=== PATIENT | male | born 1940 | race African-American/Black ===

== ENCOUNTER 2016-06-13 20:18 | Emergency (ER) | payer MEDICARE, BC, MEDICAID ==
--- NOTE | 2016-06-13 20:59 | ER Document Report ---
ED General - General Chief Complaint: Altered Mental Status Stated Complaint: ALTERED MENTAL STATUS Information source: Patient, Outside Facility Records Cannot obtain history due to: Dementia Notes: This is a 75-year-old -Turkish male with multiple medical problems sent from [facility] for concern of altered mental status. He has a prior history of dementia however the [place] [facility] staff was concerned for the past few hours she wasn't quite acting like himself and they were concerned that his left-sided chronic contractures seemed a bit worse. There were no reported fevers and he has not been vomiting. Patient does have a history of dementia and so his history is limited however he is conversant and tells me upon arrival that he feels fine and has no complaints at this time. TRAVEL OUTSIDE OF THE [place] IN LAST 30 DAYS: No - Related Data Allergies/Adverse Reactions: No Known Allergies Allergy (Verified 01/18/15 05:15) Past Medical History - General Information source: [facility] Records, Outside Facility Records Cannot obtain history due to: Dementia - Social History Smoking Status: Unknown if Ever Smoked Family History: Reviewed & Not Pertinent - Past Medical History Cardiac Medical History: Reports: Hx Atrial Fibrillation, Hx Coronary Artery Disease, Hx Hypercholesterolemia, Hx Hypertension Pulmonary Medical History: Reports: Hx COPD Neurological Medical History: Reports: Hx Cerebrovascular Accident, Hx Seizures Psychiatric Medical History: Reports: Hx Dementia, Hx Depression Past Surgical History: Reports: Hx Abdominal Surgery, Hx Herniorrhaphy - Immunizations Hx Diphtheria, Pertussis, Tetanus Vaccination: Yes Review of Systems - Review of Systems -: Yes ROS unobtainable due to patient's medical condition - dementia Constitutional: denies: Chills, Fever Physical Exam - Vital signs Vitals: Resp 15 06/13/16 20:31 - Notes Notes: PHYSICAL EXAMINATION: GENERAL: Frail elderly -Turkish male who is pleasant, conversant, and in no acute distress. HEAD: Atraumatic, normocephalic. EYES: Pupils equal round and reactive to light, extraocular movements intact, sclera anicteric, conjunctiva are normal. ENT: nares patent, oropharynx clear without exudates. Moist mucous membranes. NECK: Normal range of motion, supple without lymphadenopathy LUNGS: Breath sounds clear to auscultation bilaterally and equal. No wheezes rales or rhonchi. HEART: Regular rate and rhythm without murmurs ABDOMEN: Soft, nontender, normoactive bowel sounds. No guarding, no rebound. No masses appreciated. EXTREMITIES: Normal range of motion, no pitting or edema. No cyanosis. NEUROLOGICAL: Alert to person and he knows he is in the hospital. Cranial nerves grossly intact. Normal speech. 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 PSYCH: Normal mood, normal affect. SKIN: Warm, Dry, normal turgor, no rashes or lesions noted. Course - Re-evaluation Re-evalutation: 06/13/16 23:23 Patient's states that patient is at his baseline mental status and she thinks that he has had no acute change today. Patient has remained hemodynamically stable in the emergency department and his lab evaluation is reassuring. He does have mild hyperkalemia which is been treated today with albuterol and Kayexalate. At this point he is appropriate for discharge back to the [place] [facility]. - Vital Signs Vital signs: Temp Pulse Resp BP Pulse Ox 98.3 F 15 153/107 H 100 06/13/16 21:07 06/14/16 00:01 06/14/16 00:00 06/13/16 23:59 - Laboratory Result Diagrams: 06/13/16 21:00 06/13/16 21:00 Laboratory results interpreted by me: 06/13/16 06/13/16 06/13/16 21:00 21:00 21:00 Hgb 13.2 L MCH 26.0 L RDW 15.4 H Potassium 5.5 H ALT 98 H Alkaline Phosphatase 136 H Albumin 3.3 L Urine Ascorbic Acid 40 H - Diagnostic Test Radiology reviewed: Reports reviewed - Chest x-ray without acute process. Head CT negative for acute change. - EKG Interpretation by Me Additional EKG results interpreted by me: 06/13/16 23:25 EKG at 2036 demonstrates atrial fibrillation with a rate in the 60s. There is no ST segment elevation or depression. Discharge - Discharge Clinical Impression: Hyperkalemia, Dementia Condition: Stable Disposition: SNF Additional Instructions: Dementia The exam shows a decrease in mental ability called dementia. Signs of dementia include a gradual loss of memory and a decreased ability to reason and solve problems. Personality changes, hostility, lack of self-care, and loss of bladder or bowel control are later signs of dementia. In these later stages, patients may become confused, lost, fearful, or agitated, even in familiar places. Alzheimer's disease is the most common type of dementia. It has no known cause or specific treatment. Other causes include alcohol and drug abuse, medication effects (especially tranquilizers and sleeping pills), strokes, head injuries, and brain tumors. Sometimes severe depression in an elderly person is mistaken for dementia, and this can be treated if recognized. A complete medical evaluation and ongoing care with a doctor is important. Most people with dementia need help or supervision with daily living. Some may be able to live independently with occasional help; others require foster care or even [place] placement. Alcohol, sedatives, and antihistamines may make the symptoms worse and should be avoided. Alzheimer's disease support groups are available in some communities and can be very valuable to the entire family. Prescription medication can ease the symptoms of Alzheimer's disease in some patients. Please arrange for medical follow-up. Return here if there is a sudden change in mental function, inability to move an arm or leg, inability to speak, fever, or any other significant change. Your potassium level was mildly elevated today. This should be rechecked in the next week. Return to the emergency department for any worsening symptoms or concerns. Referrals: THEA REYES MD [Primary Care Provider] - Follow up as needed
[2016-06-13 21:23] LABS: ABSOLUTE LYMPHOCYTES (AUTO) 1.2 10^3/uL (0.5-4.7); ABSOLUTE MONOCYTES (AUTO) 0.3 10^3/uL (0.1-1.4); ABSOLUTE NEUT (AUTO) 2.7 10^3/uL (1.7-8.2); BASOPHILS % (AUTO) 1.1 % (0-2); EOSINOPHILS % (AUTO) 0.8 % (0-6); HEMOGLOBIN 13.2 g/dL (13.5-17.0); HGB HCT DIFFERENCE -1.4; LYMPHOCYTES % (AUTO) 27.9 % (13-45); MEAN CORPUSCULAR HGB CONC 32.1 g/dL (32.0-36.0); MEAN CORPUSCULAR VOLUME 81 fl (80-97); MONOCYTES % (AUTO) 7.5 % (3-13); RED BLOOD COUNT 5.07 10^6/uL (4.35-5.55); RED CELL DISTRIBUTION WIDTH 15.4 % (11.5-14.0); SEGMENTED NEUTROPHILS % (AUTO) 62.7 % (42-78); WHITE BLOOD COUNT 4.2 10^3/uL (4.0-10.5)
[2016-06-13 21:24] LABS: ALANINE AMINOTRANSFERASE 98 U/L (21-72); ALBUMIN 3.3 g/dL (3.5-5.0); ALKALINE PHOSPHATASE 136 U/L (38-126); ANION GAP 9 (5-19); ASPARTATE AMINO TRANSFERASE 52 U/L (17-59); BILIRUBIN,TOTAL 0.5 mg/dL (0.2-1.3); BLOOD UREA NITROGEN 18 mg/dL (7-20); CALCIUM 9.4 mg/dL (8.4-10.2); CARBON DIOXIDE 30 mmol/L (22-30); CHLORIDE 106 mmol/L (98-107); CREATININE RESULT 1.18 mg/dL (0.52-1.25); GLUCOSE 99 mg/dL (75-110); MAGNESIUM 2.2 mg/dL (1.6-2.3); POTASSIUM 5.5 mmol/L (3.6-5.0); SODIUM 144.7 mmol/L (137-145); TOTAL PROTEIN 7.1 g/dL (6.3-8.2)
[2016-06-13 21:31] LABS: APPEARANCE,URINE CLEAR; BILIRUBIN,URINE NEGATIVE (NEGATIVE); GLUCOSE, URINE NEGATIVE (NEGATIVE); KETONES,URINE NEGATIVE (NEGATIVE); LEUKOCYTE ESTERASE,URINE NEGATIVE (NEGATIVE); NITRITE,URINE NEGATIVE (NEGATIVE); PROTEIN,URINE NEGATIVE (NEGATIVE); URINE SPECIFIC GRAVITY 1.017; UROBILINOGEN,URINE NEGATIVE mg/dL (<2.0)
[2016-06-13] MEDS ORDERED: ALBUTEROL SULFATE 0.083% NEB 2.5 MG/3 ML AMPUL NEB ONE (21:43)
[2016-06-13] MEDS ORDERED: SODIUM POLYSTYRENE SULFONATE 15 GM/60 ML PO ONE (21:43)
[2016-06-13 21:45] LABS: URINE BARBITURATES SCREEN NEGATIVE; URINE METHADONE SCREEN NEGATIVE; URINE OPIATES LOW NEGATIVE; URINE PHENCYCLIDINE SCREEN NEGATIVE
--- NOTE | 2016-06-13 22:44 | EKG REPORT ---
SEVERITY:- ABNORMAL ECG - ATRIAL FIBRILLATION, V-RATE 47-89 LOW VOLTAGE IN FRONTAL LEADS : Confirmed by: Paresh Schwartz 13-Jun-2016 22:43:44
[2016-06-14 00:12] VITALS: BP 153/107
== END 2016-06-14 00:12 ==
LOC: ER 20:18
DX: E87.5 Hyperkalemia (principal); F03.90 Unspecified dementia, unspecified severity, without behavioral disturbance, psychotic disturbance, mood disturbance, and anxiety; I69.354 Hemiplegia and hemiparesis following cerebral infarction affecting left non-dominant side; I10 Essential (primary) hypertension; I48.91 Unspecified atrial fibrillation; I25.10 Atherosclerotic heart disease of native coronary artery without angina pectoris; J44.9 Chronic obstructive pulmonary disease, unspecified
CPT/HCPCS: 93005; 94640; 99285; 36415; 83735; 85025; 80053; 81001; 80307; 71010; 70450; 93010; A9270

== ENCOUNTER 2017-01-22 09:41 | Emergency (ER) | payer MEDICARE, BC, MEDICAID ==
--- NOTE | 2017-01-22 09:58 | ER Document Report ---
ED Seizure - General Chief Complaint: Probable Seizure Stated Complaint: POSSIBLE SYNCOPE Time Seen by Provider: 01/22/17 09:46 Notes: 76-year-old male sent to the emergency department from a retirement. The patient apparently had a seizure this morning at approximately 9 AM. I am told this was a tonic-clonic seizure. The patient does have a history of seizures, but has not been taking his medications the past 4 days. Report, through EMS, is that the patient only likes to take his medications in a certain manner and the nurse that knows how to help him with that had been off through the weekend. History is limited with the patient, as he is only occasionally verbal at baseline. He is responsive to painful stimuli now and follows some simple commands. Reviewing nurse's notes, this appears to be close to his baseline. EMS reports they noted mild low oxygen saturation level on their initial evaluation. He is afebrile. - Related Data Allergies/Adverse Reactions: No Known Allergies Allergy (Verified 01/18/15 05:15) Past Medical History - Social History Smoking Status: Never Smoker Family History: Reviewed & Not Pertinent - Past Medical History Cardiac Medical History: Reports: Hx Atrial Fibrillation, Hx Coronary Artery Disease, Hx Hypercholesterolemia, Hx Hypertension Pulmonary Medical History: Reports: Hx COPD Neurological Medical History: Reports: Hx Cerebrovascular Accident, Hx Seizures Psychiatric Medical History: Reports: Hx Dementia, Hx Depression Past Surgical History: Reports: Hx Abdominal Surgery, Hx Herniorrhaphy - Immunizations Hx Diphtheria, Pertussis, Tetanus Vaccination: Yes Review of Systems - Review of Systems -: Yes ROS unobtainable due to patient's medical condition - Patient is only occasionally verbal at baseline. He is not communicative a Physical Exam - Vital signs Vitals: Resp Pulse Ox 22 H 96 01/22/17 09:59 01/22/17 09:59 - Notes Notes: PHYSICAL EXAMINATION: GENERAL: Elderly appearing male with noted muscle loss and some degree of palsy with possible mild contractures. Appears to be bedbound and non-ambulatory. HEAD: Atraumatic, normocephalic. ENT: Nares patent, oropharynx clear without exudates. Moist mucous membranes. The patient's eyes are closed. He will open them when asked. At that time he has watery discharge. Both eyes are rotated upward. The patient is legally blind. NECK: Normal range of motion, supple without lymphadenopathy LUNGS: Breath sounds clear to auscultation bilaterally and equal. No wheezes rales or rhonchi. HEART: Tachycardic at 110 irregularly irregular. ABDOMEN: Soft, nontender, nondistended abdomen. No guarding, no rebound. No masses appreciated. Musculoskeletal: Some degree of palsy with muscle wasting. No edema noted. NEUROLOGICAL: Patient is responsive to pain and does follow simple instructions. He moves all 4 extremities, though with limited strength and focal ability. He appears to have some degree of palsy. PSYCH: Currently nonverbal. I am told he is nonverbal at times at baseline. He does follow commands. SKIN: Warm, Dry, no rashes or lesions noted. Course - Re-evaluation Re-evalutation: 01/22/17 10:09 Afebrile patient, no acute distress. Reading through the nurse's notes and discussing the history with EMS, I believe the patient is likely at baseline. He had a seizure, but has not been taking his antiseizure medication for the past 4 days. We will treat him with Keppra IV and give a dose of Cardizem IV due to his slight tachycardia with atrial fibrillation. 01/22/17 10:54 The patient called out to me from his room. He is now significantly more verbal and can answer some questions. He has not received his medications yet. His heart rate is 112-125. Lactic acid level has come back elevated. Presumably this is due to his seizure and not a septic situation, but we will continue to monitor closely and perform a recheck on his lactic acid level after medications and IV fluid. 01/22/17 12:29 Patient's chest x-ray shows left airspace disease consistent with possible pneumonia. He has had some mild hypoxia. At this point, he is having a good oxygen saturation level on room air, to 96%. His white blood cell count is normal. We are rechecking his lactic acid level which is pending. We will initiate antibiotics for possible pneumonia. 01/22/17 12:41 Patient's is now present in the emergency department. She is very pleasant and knowledgeable about her 's condition. She reports he appears at his baseline currently. I have reviewed the results with her and the history as we understand it. I discussed the chest x-ray with her and discuss possible admission to the hospital for the lesser possibility of pneumonia, versus discharge back to the retirement with ongoing antibiotics, primarily focused on treatment of the seizure he had earlier. She believes he would be best served returning to the retirement. If his lactic acid level has significantly reduced, we will plan on discharging him back to the retirement. If the lactic acid level is still elevated, will consider admission to the hospital. 01/22/17 16:24 There was a confusion with an order for repeat lactic acid level. This led to a delay in the patient's disposition. His lactic acid level has been returned now at a level of 1.8. This is significantly less than his initial lactic acid level, which I believe was likely due to his seizure activity. As per my conversation with the patient's earlier, we will discharge the patient back to the retirement. I will place him on Levaquin for possible pneumonia. We have discussed the situation where the patient may not have been taking his medications through the weekend with the . She will follow-up at the retirement regarding this. - Vital Signs Vital signs: Temp Pulse Resp BP Pulse Ox 16 158/98 H 96 01/22/17 15:01 01/22/17 15:01 01/22/17 13:01 - Laboratory Result Diagrams: 01/22/17 10:00 01/22/17 10:00 Laboratory results interpreted by me: 01/22/17 01/22/17 01/22/17 10:00 10:00 10:00 Hgb 13.3 L MCH 26.5 L RDW 15.2 H Sodium 145.3 H Potassium 5.2 H Glucose 111 H Lactic Acid 4.7 H Albumin 3.4 L Urine Urobilinogen 01/22/17 12:25 Hgb MCH RDW Sodium Potassium Glucose Lactic Acid Albumin Urine Urobilinogen 2.0 H - Diagnostic Test Radiology reviewed: Reports reviewed - X-ray shows possible pneumonia, left lower lobe. Discharge - Discharge Clinical Impression: Seizure disorder, Atrial fibrillation Pneumonia Qualifiers: Pneumonia type: due to unspecified organism Laterality: left Lung location: lower lobe of lung Qualified Code(s): J18.1 - Lobar pneumonia, unspecified organism Condition: Good Disposition: SNF-Other Instructions: Seizure, Known Epileptic ([facility]) Additional Instructions: Continue giving the patient's usual medications. He has not had his medications over the past few days, he was treated with Keppra through his IV. Chest x-ray showed the possibility of pneumonia in the left lower lobe. He was treated with Levaquin. Give Levaquin 500 mg once a day for the next 5 days. Follow-up with the patient's physician at the retirement. Return to the emergency department if he has any fever, shortness of breath, any additional seizures, or if there are other urgent concerns. Referrals: THEA REYES MD [Primary Care Provider] - Follow up in 3-5 days
[2017-01-22] MEDS ORDERED: LEVETIRACETAM 500 MG/NACL-ISO 500 MG/100 ML RTUPB IV ONE (10:07)
[2017-01-22] MEDS ORDERED: DILTIAZEM HCL INJ 25 MG/5 ML VIAL IV ONE (10:08)
[2017-01-22 10:23] LABS: ABSOLUTE BASOPHILS # (AUTO) 0.1 10^3/uL (0.0-0.2); ABSOLUTE EOSINOPHILS # (AUTO) 0.1 10^3/uL (0.0-0.6); ABSOLUTE LYMPHOCYTES (AUTO) 2.2 10^3/uL (0.5-4.7); ABSOLUTE MONOCYTES (AUTO) 0.5 10^3/uL (0.1-1.4); ABSOLUTE NEUT (AUTO) 5.2 10^3/uL (1.7-8.2); EOSINOPHILS % (AUTO) 1.3 % (0-6); HEMATOCRIT 40.7 % (37.9-51.0); HEMOGLOBIN 13.3 g/dL (13.5-17.0); HGB HCT DIFFERENCE -0.8; LYMPHOCYTES % (AUTO) 27.4 % (13-45); MEAN CORPUSCULAR HEMOGLOBIN 26.5 pg (27.0-33.4); MEAN CORPUSCULAR HGB CONC 32.6 g/dL (32.0-36.0); MEAN CORPUSCULAR VOLUME 81 fl (80-97); MONOCYTES % (AUTO) 6.4 % (3-13); RED BLOOD COUNT 5.01 10^6/uL (4.35-5.55); RED CELL DISTRIBUTION WIDTH 15.2 % (11.5-14.0); SEGMENTED NEUTROPHILS % (AUTO) 63.9 % (42-78); WHITE BLOOD COUNT 8.1 10^3/uL (4.0-10.5)
[2017-01-22 10:27] LABS: PROTHROMBIN TIME 13.7 SEC (11.4-15.4)
--- NOTE | 2017-01-22 10:33 | RADIOLOGY REPORT (SQ) ---
EXAM DESCRIPTION: CHEST SINGLE VIEW COMPLETED DATE/TIME: 01/22/2017 10:24 am REASON FOR STUDY: bed 1 sepsis protocol COMPARISON: CT chest 03/20/2016 AP chest 06/13/2016 EXAM PARAMETERS: NUMBER OF VIEWS: One view. TECHNIQUE: Single frontal radiographic view of the chest acquired. RADIATION DOSE: NA LIMITATIONS: EKG leads over the left chest, portable technique, rotated toward the [place] orientation FINDINGS: LUNGS AND PLEURA: Air bronchograms in the left retrocardiac region worrisome for pneumonia . Right lung grossly clear. No gross pleural effusions or pneumothorax. MEDIASTINUM AND HILAR STRUCTURES: No masses. Contour normal. HEART AND VASCULAR STRUCTURES: Heart normal in size. Normal vasculature. BONES: No acute findings. HARDWARE: None in the chest. OTHER: [place] over the left chest. IMPRESSION: Left lower lobe airspace disease worrisome for pneumonia TECHNICAL DOCUMENTATION: JOB ID: [id number]
[2017-01-22 10:52] LABS: ALANINE AMINOTRANSFERASE 33 U/L (21-72); ALBUMIN 3.4 g/dL (3.5-5.0); ALKALINE PHOSPHATASE 116 U/L (38-126); ANION GAP 13 (5-19); ASPARTATE AMINO TRANSFERASE 27 U/L (17-59); BILIRUBIN,DIRECT 0.4 mg/dL (0.0-0.4); BILIRUBIN,TOTAL 0.6 mg/dL (0.2-1.3); BLOOD UREA NITROGEN 17 mg/dL (7-20); CARBON DIOXIDE 25 mmol/L (22-30); CHLORIDE 107 mmol/L (98-107); CREATININE RESULT 1.12 mg/dL (0.52-1.25); GLUCOSE 111 mg/dL (75-110); POTASSIUM 5.2 mmol/L (3.6-5.0); SODIUM 145.3 mmol/L (137-145); TOTAL PROTEIN 7.5 g/dL (6.3-8.2)
[2017-01-22] MEDS ORDERED: NORMAL SALINE 500 ML IV ONE (10:55)
[2017-01-22] MEDS ORDERED: LIDOCAINE 2% JELLY 5 ML TUBE ONE (12:19)
[2017-01-22 12:44] LABS: APPEARANCE,URINE CLEAR; BILIRUBIN,URINE NEGATIVE (NEGATIVE); GLUCOSE, URINE NEGATIVE (NEGATIVE); KETONES,URINE NEGATIVE (NEGATIVE); LEUKOCYTE ESTERASE,URINE NEGATIVE (NEGATIVE); NITRITE,URINE NEGATIVE (NEGATIVE); PROTEIN,URINE NEGATIVE (NEGATIVE); URINE SPECIFIC GRAVITY 1.011
[2017-01-22] MEDS ORDERED: LEVOFLOXACIN 500 MG/D5W RTU 500 MG/100 ML RTUPB IV SCH (13:00)
[2017-01-22 17:46] VITALS: BP 146/97
--- NOTE | 2017-01-22 18:29 | EKG REPORT ---
SEVERITY:- ABNORMAL ECG - ATRIAL FIBRILLATION, V-RATE 87-146 LEFT VENTRICULAR HYPERTROPHY BORDERLINE PROLONGED QT INTERVAL : Confirmed by: Paresh Schwartz 22-Jan-2017 18:28:55
== END 2017-01-22 17:43 ==
LOC: ER 09:41
DX: G40.909 Epilepsy, unspecified, not intractable, without status epilepticus (principal); T50.996A Underdosing of other drugs, medicaments and biological substances, initial encounter; Y92.129 Unspecified place in nursing home as the place of occurrence of the external cause; Z91.128 Patient's intentional underdosing of medication regimen for other reason; Z91.14 Patient's other noncompliance with medication regimen; J18.1 Lobar pneumonia, unspecified organism; I48.91 Unspecified atrial fibrillation; R09.02 Hypoxemia; I25.10 Atherosclerotic heart disease of native coronary artery without angina pectoris; I10 Essential (primary) hypertension; J44.9 Chronic obstructive pulmonary disease, unspecified; R00.0 Tachycardia, unspecified; R74.0 Nonspecific elevation of levels of transaminase and lactic acid dehydrogenase [LDH]; Z86.73 Personal history of transient ischemic attack (TIA), and cerebral infarction without residual deficits
CPT/HCPCS: 93005; 99284; 96361; 96375; 96365; 96367; 36415; 87040; 87086; 85025; 85610; 80053; 81001; 83605; 71010; 93010; J1956; J3490; J7040; J1953

== ENCOUNTER 2017-04-10 08:14 | Inpatient (IN) | payer MEDICARE, BC, MEDICAID ==
[2017-04-10] MEDS ORDERED: ACETAMINOPHEN 325 MG SUPP.RECT PR ONE (08:17)
[2017-04-10] MEDS ORDERED: LEVETIRACETAM 1000 MG/NACL-ISO 1,000 MG/100 ML RTUPB IV ONE (08:22)
[2017-04-10] MEDS ORDERED: NORMAL SALINE 1000 ML 1,000 ML IV ONE ×2 (08:23→08:24)
[2017-04-10] MEDS ORDERED: LORAZEPAM INJ 2 MG/1 ML VIAL IV ONE (08:24)
[2017-04-10] MEDS ORDERED: ACETAMINOPHEN 650 MG SUPP.RECT PR ONE (08:25)
[2017-04-10 08:51] LABS: HEMATOCRIT 47.3 % (37.9-51.0); HEMOGLOBIN 14.8 g/dL (13.5-17.0); MEAN CORPUSCULAR HGB CONC 31.3 g/dL (32.0-36.0); MEAN CORPUSCULAR VOLUME 83 fl (80-97); PLATELET COUNT 224 10^3/uL (150-450); RED BLOOD COUNT 5.68 10^6/uL (4.35-5.55); RED CELL DISTRIBUTION WIDTH 15.1 % (11.5-14.0); WHITE BLOOD COUNT 9.8 10^3/uL (4.0-10.5)
[2017-04-10 08:53] LABS: VENOUS BLOOD BASE EXCESS -7.7 mmol/L; VENOUS BLOOD HCO3 20.2 mmol/L (20-32); VENOUS BLOOD PCO2 49.8 mmHg (35-63); VENOUS BLOOD PH 7.23 (7.30-7.42)
[2017-04-10 09:00] LABS: INTERNATIONAL RATION (INR) 0.99; PROTHROMBIN TIME 13.8 SEC (11.4-15.4)
[2017-04-10 09:10] LABS: ALANINE AMINOTRANSFERASE 36 U/L (21-72); ALBUMIN 3.8 g/dL (3.5-5.0); ALKALINE PHOSPHATASE 140 U/L (38-126); ANION GAP 16 (5-19); ASPARTATE AMINO TRANSFERASE 27 U/L (17-59); BILIRUBIN,DIRECT 0.4 mg/dL (0.0-0.4); BILIRUBIN,TOTAL 0.6 mg/dL (0.2-1.3); BLOOD UREA NITROGEN 19 mg/dL (7-20); CALCIUM 9.6 mg/dL (8.4-10.2); CARBON DIOXIDE 20 mmol/L (22-30); CHLORIDE 110 mmol/L (98-107); CREATINE KINASE 38 U/L (55-170); GLUCOSE 155 mg/dL (75-110); POTASSIUM 5.4 mmol/L (3.6-5.0); SODIUM 145.9 mmol/L (137-145); TOTAL PROTEIN 8.1 g/dL (6.3-8.2)
--- NOTE | 2017-04-10 09:16 | RADIOLOGY REPORT (SQ) ---
EXAM DESCRIPTION: CT HEAD WITHOUT COMPLETED DATE/TIME: 04/10/2017 9:02 am REASON FOR STUDY: sz COMPARISON: 06/13/2016 TECHNIQUE: Axial images acquired through the brain without intravenous contrast. Images reviewed wi th bone, brain and subdural windows. Images stored on PACS. All CT scanners at this facility use dose modulation, iterative reconstruction, and/or weight based d osing when appropriate to reduce radiation dose to as low as reasonably achievable (ALARA). [facility]: Dose Right [facility]: CareDose [facility]: Dose Right [facility]: Teradose 4D [facility]: [employer] RADIATION DOSE: CT Rad equipment meets quality standard of care and radiation dose reduction techniq ues were employed. CTDIvol: 64.5 mGy. DLP: 1163 mGy-cm.mGy. LIMITATIONS: Motion. Shrapnel in the soft tissues overlying the left scalp. FINDINGS: VENTRICLES: Prominent. CEREBRUM: No masses. No hemorrhage. No midline shift. Areas of low density in the white matter mos t likely due to chronic micro-vascular ischemic change. No evidence for acute infarction. CEREBELLUM: No masses. No hemorrhage. No alteration of density. No evidence for acute infarction. EXTRAAXIAL SPACES: Age-related involutional change. No fluid collections. No masses. ORBITS AND GLOBE: No intra- or extraconal masses. Normal contour of globe without masses. CALVARIUM: No fracture. PARANASAL SINUSES: Chronic sinus disease. SOFT TISSUES: No mass or hematoma. OTHER: No other significant finding. IMPRESSION: CHRONIC CHANGES OF ATROPHY AND MICROVASCULAR ISCHEMIA. NO ACUTE PROCESS. EVIDENCE OF ACUTE STROKE: NO. TECHNICAL DOCUMENTATION: JOB ID: [id number] Quality ID # [id number]: Final reports with documentation of one or more dose reduction techniques (e.g., Au tomated exposure control, adjustment of the mA and/or kV according to patient size, use of iterative reconstruction technique) 2010 [employer]- All Rights Reserved
[2017-04-10 09:18] LABS: ABSOLUTE LYMPHOCYTES# (MANUAL) 4.7 10^3/uL (0.5-4.7); ABSOLUTE MONOCYTES # (MANUAL) 1.6 10^3/uL (0.1-1.4); ABSOLUTE NEUTROPHILS# (MANUAL) 3.3 10^3/uL (1.7-8.2); BASOPHILS % (MANUAL) 0 % (0-2); EOSINOPHILS % (MANUAL) 2 % (0-6); LYMPHOCYTES % (MANUAL) 21 % (13-45); MONOCYTES % (MANUAL) 16 % (3-13); SEGMENTED NEUTROPHILS % (MAN) 34 % (42-78); TOTAL CELLS COUNTED 100
--- NOTE | 2017-04-10 09:18 | RADIOLOGY REPORT (SQ) ---
EXAM DESCRIPTION: CHEST SINGLE VIEW COMPLETED DATE/TIME: 04/10/2017 9:03 am REASON FOR STUDY: fever COMPARISON: 01/22/2017. EXAM PARAMETERS: NUMBER OF VIEWS: One view. TECHNIQUE: Single frontal radiographic view of the chest acquired. RADIATION DOSE: NA LIMITATIONS: None. FINDINGS: LUNGS AND PLEURA: Mild elevation of the left hemidiaphragm. Possible patchy consolidation in the retrocardiac left lung base. No pleural effusion or pneumothorax. Right lung clear. MEDIASTINUM AND HILAR STRUCTURES: No masses. Contour normal. HEART AND VASCULAR STRUCTURES: Heart normal in size. Normal vasculature. BONES: No acute findings. HARDWARE: None in the chest. OTHER: Numerous metallic densities throughout the soft tissues. IMPRESSION: MILD ELEVATION OF THE LEFT HEMIDIAPHRAGM. POSSIBLE PATCHY CONSOLIDATION IN THE RETROCAR DIAC LEFT LUNG BASE, DIFFICULT TO VISUALIZE. RIGHT LUNG CLEAR. TECHNICAL DOCUMENTATION: JOB ID: [id number] [employer]- All Rights Reserved
[2017-04-10 09:19] LABS: ANISOCYTOSIS SLIGHT; TOXIC GRANULATION SLIGHT
[2017-04-10 09:20] LABS: PLATELET COMMENT ADEQUATE
[2017-04-10 09:25] LABS: VALPROIC ACID < 10.0 ug/mL (50.0-120.0)
--- NOTE | 2017-04-10 09:27 | EKG REPORT ---
SEVERITY:- ABNORMAL ECG - ATRIAL FIBRILLATION, V-RATE 91-149 NONSPECIFIC INTRAVENTRICULAR CONDUCTION DELAY BORDERLINE ST DEPRESSION, ANTEROLATERAL LEADS : Confirmed by: Paresh Schwartz 10-Apr-2017 09:26:52
[2017-04-10 09:35] LABS: APPEARANCE,URINE SLIGHTLY-CLOUDY; BILIRUBIN,URINE NEGATIVE (NEGATIVE); COLOR,URINE YELLOW; GLUCOSE, URINE NEGATIVE (NEGATIVE); KETONES,URINE NEGATIVE (NEGATIVE); LEUKOCYTE ESTERASE,URINE NEGATIVE (NEGATIVE); NITRITE,URINE NEGATIVE (NEGATIVE); PROTEIN,URINE 100 mg/dL (NEGATIVE); URINE SPECIFIC GRAVITY 1.015; UROBILINOGEN,URINE NEGATIVE mg/dL (<2.0)
[2017-04-10] MEDS ORDERED: LEVOFLOXACIN 500 MG/D5W RTU 500 MG/100 ML RTUPB IV ONE (09:35)
[2017-04-10] MEDS ORDERED: DILTIAZEM HCL INJ 25 MG/5 ML VIAL IV ONE (10:21)
[2017-04-10] MEDS ORDERED: DILTIAZEM HCL/D5W 125 MG/125 ML RTUINJ IV PRN (10:23)
[2017-04-10 10:32] LABS: A TYPE INFLUENZA AG NEGATIVE (NEGATIVE); B INFLUENZA AG NEGATIVE (NEGATIVE)
[2017-04-10] MEDS ORDERED: ONDANSETRON HCL INJ/PF 4 MG/2 ML SDV IV PRN ×2 (11:05→12:30)
[2017-04-10] MEDS ORDERED: ALBUTEROL SULFATE 0.083% NEB 2.5 MG/3 ML AMPUL NEB PRN (11:05)
[2017-04-10] MEDS ORDERED: ACETAMINOPHEN 325 MG TABLET PO PRN (11:05)
--- NOTE | 2017-04-10 11:38 | PDOC H&P ---
History of Present Illness Admission Date/PCP: THEA REYES Patient complains of: Rigors and fever. Possible seizure History of Present Illness: CHARISSE HUDSON is a 76 year old male known to me from previous admissions who has a history of dementia as well as a seizure disorder who presents with shaking and the shelter was concerned that he may be having a seizure. When he presented he was found to have a fever of 102 and it is most likely this represents rigors. He does however have a history of seizure disorder. The patient is demented and is unresponsive at this time. The patient is a long -term resident of the shelter. The patient has clinically what appears to be right-sided pneumonia probable aspiration. Past Medical History Cardiac Medical History: Reports: Atrial Fibrillation, Coronary Artery Disease, Hyperlipidema, Hypertension Pulmonary Medical History: Reports: Chronic Obstructive Pulmonary Disease (COPD) Neurological Medical History: Reports: Seizures Malignancy Medical History: Reports: None Psychiatric Medical History: Reports: Dementia, Depression Traumatic Medical History: Reports: None Past Surgical History Past Surgical History: Reports: Herniorrhaphy Social History Information Source[facility], Outside Facility Records Lives with: Halfway Smoking Status: Former Smoker Frequency of Alcohol Use: None Hx Recreational Drug Use: No Drugs: None Hx Prescription Drug Abuse: No - Advance Directive Resuscitation Status: Do Not Resuscitate Surrogate healthcare decision maker:: His Family History Family History: Unable to obtain secondary to the patient's mental status Parental Family History Reviewed: Yes Children Family History Reviewed: No Sibling(s) Family History Reviewed.: No Medication/Allergy Allergies/Adverse Reactions: No Known Allergies Allergy (Verified 01/18/15 05:15) Review of Systems ROS unobtainable: Due to mental status Physical Exam Vital Signs: Temp Pulse Resp BP Pulse Ox 98.5 F 22 H 184/112 H 99 04/10/17 11:05 04/10/17 10:00 04/10/17 08:21 04/10/17 10:00 General appearance: PRESENT: no acute distress Eye exam: PRESENT: conjunctiva pink. ABSENT: scleral icterus Ear exam: PRESENT: normal external ear exam Mouth exam: PRESENT: dry mucosa Neck exam: ABSENT: carotid bruit, JVD, lymphadenopathy, thyromegaly Respiratory exam: PRESENT: rhonchi - Coarse rhonchi bilaterally worse on the right. ABSENT: rales, wheezes Cardiovascular exam: PRESENT: RRR. ABSENT: diastolic murmur, rubs, systolic murmur Pulses: PRESENT: normal dorsalis pedis pul Vascular exam: PRESENT: normal capillary refill GI/Abdominal exam: PRESENT: normal bowel sounds, soft. ABSENT: distended, guarding, mass, organolmegaly, rebound, tenderness Extremities exam: PRESENT: full ROM. ABSENT: calf tenderness, clubbing, pedal edema Neurological exam: PRESENT: altered, other - Contracture of the left upper extremity Psychiatric exam: PRESENT: other - Unable to assess Skin exam: PRESENT: dry, intact, warm. ABSENT: cyanosis, rash Results Laboratory Results: 04/10/17 08:20 04/10/17 08:20 04/10/17 04/10/17 04/10/17 08:20 08:20 08:20 WBC 9.8 RBC 5.68 H Hgb 14.8 Hct 47.3 MCV 83 MCH 26.0 L MCHC 31.3 L RDW 15.1 H Plt Count 224 Seg Neutrophils % Not Reportable Lymphocytes % Not Reportable Monocytes % Not Reportable Eosinophils % Not Reportable Basophils % Not Reportable Absolute Neutrophils Not Reportable Absolute Lymphocytes Not Reportable Absolute Monocytes Not Reportable Absolute Eosinophils Not Reportable Absolute Basophils Not Reportable VBG pH VBG pCO2 VBG HCO3 VBG Base Excess Sodium 145.9 H Potassium 5.4 H Chloride 110 H Carbon Dioxide 20 L Anion Gap 16 BUN 19 Creatinine 1.19 Est GFR ( Amer) > 60 Est GFR (Non-Af Amer) > 60 Glucose 155 H Lactic Acid 4.8 H Calcium 9.6 Total Bilirubin 0.6 AST 27 ALT 36 Alkaline Phosphatase 140 H Total Protein 8.1 Albumin 3.8 Urine Color Urine Appearance Urine pH Ur Specific [place] Urine Protein Urine Glucose (UA) Urine Ketones Urine Blood Urine Nitrite Ur Leukocyte Esterase Urine WBC (Auto) Urine RBC (Auto) 04/10/17 04/10/17 08:20 09:10 WBC RBC Hgb Hct MCV MCH MCHC RDW Plt Count Seg Neutrophils % Lymphocytes % Monocytes % Eosinophils % Basophils % Absolute Neutrophils Absolute Lymphocytes Absolute Monocytes Absolute Eosinophils Absolute Basophils VBG pH 7.23 L VBG pCO2 49.8 VBG HCO3 20.2 VBG Base Excess -7.7 Sodium Potassium Chloride Carbon Dioxide Anion Gap BUN Creatinine Est GFR ( Amer) Est GFR (Non-Af Amer) Glucose Lactic Acid Calcium Total Bilirubin AST ALT Alkaline Phosphatase Total Protein Albumin Urine Color YELLOW Urine Appearance SLIGHTLY-CLOUDY Urine pH 5.0 Ur Specific [place] 1.015 Urine Protein 100 H Urine Glucose (UA) NEGATIVE Urine Ketones NEGATIVE Urine Blood LARGE H Urine Nitrite NEGATIVE Ur Leukocyte Esterase NEGATIVE Urine WBC (Auto) 44 Urine RBC (Auto) >182 04/10/17 04/10/17 08:20 09:10 Creatine Kinase 38 L Troponin I 0.023 Impressions: Chest X-Ray 04/10/17 08:18 IMPRESSION: MILD ELEVATION OF THE LEFT HEMIDIAPHRAGM. POSSIBLE PATCHY CONSOLIDATION IN THE RETROCARDIAC LEFT LUNG BASE, DIFFICULT TO VISUALIZE. RIGHT LUNG CLEAR. Head CT 04/10/17 08:25 IMPRESSION: CHRONIC CHANGES OF ATROPHY AND MICROVASCULAR ISCHEMIA. NO ACUTE PROCESS. EVIDENCE OF ACUTE STROKE: NO. Assessment & Plan - Diagnosis (1) Aspiration pneumonia Qualifiers: Is this a current diagnosis for this admission?: Yes Plan: The patient had fever and rigors. Chest x-ray does not show an obvious infiltrate but clinically has a right-sided pneumonia. Will treat with Levaquin. Blood cultures have been obtained. (2) CAD (coronary artery disease) Qualifiers: Is this a current diagnosis for this admission?: Yes (3) COPD (chronic obstructive pulmonary disease) Qualifiers: Is this a current diagnosis for this admission?: Yes Plan: Continue with nebulizers as needed (4) Dementia Qualifiers: Is this a current diagnosis for this admission?: Yes (5) Hyperlipidemia Is this a current diagnosis for this admission?: Yes (6) Seizure Is this a current diagnosis for this admission?: Yes Plan: Is not clear whether the patient's presentation was from Rigors and fever or whether he had a seizure also. Will continue with his Keppra at his outpatient dose. (7) Do not resuscitate Is this a current diagnosis for this admission?: Yes - Time Time Spent: 50 to 70 Minutes - Inpatient Certification Medical Necessity: Need Close Monitoring Due to Risk of Patient Decompensation, Need for IV Antibiotics
--- NOTE | 2017-04-10 11:47 | ER Document Report ---
ED General - General Chief Complaint: Seizure Stated Complaint: POSSIBLE SEIZURE Time Seen by Provider: 04/10/17 08:18 TRAVEL OUTSIDE OF THE [place] IN LAST 30 DAYS: No - HPI Patient complains to provider of: Seizure-like activity Notes: Patient coming in for seizure-like activity. According to EMS patient was shaking in the halfway patient has a history of CVA in the past has made him mostly nonverbal patient does have lower extremity contractures. Most of the HPI is unobtainable EMS did not get much more of report from the halfway other than shaking activities concern for seizure. Patient does have a seizure disorder for which he is on Keppra for. Upon evaluation ER patient is opening his eyes spontaneously patient is drooling which we are suctioning. Tachycardic. Patient does have some generalized shaking activity of all 4 extremities - Related Data Allergies/Adverse Reactions: No Known Allergies Allergy (Verified 01/18/15 05:15) Home Medications: Current Home Medications Amlodipine Besylate [Norvasc 10 mg Tablet] 10 mg PO DAILYP PRN 04/10/17 [History ] Budesonide/Formoterol Fumarate [Symbicort Hfa 160-4.5 Mcg Inhaler 6 gm] 1 puff IH Q12 04/10/17 [History] Bupropion HCl [Wellbutrin 75 Mg Tablet] 75 mg PO Q12 04/10/17 [History] Clonidine HCl [Catapres 0.2 mg Tablet] 0.2 mg PO Q12 04/10/17 [History] Divalproex Sodium [Depakote Sprinkle 125 Mg Capsule] 125 mg PO Q12 04/10/17 [ History] Docusate Sodium [Colace 100 mg Capsule] 100 mg PO BID 04/10/17 [History] Finasteride [Proscar 5 mg Tablet] 5 mg PO DAILY 04/10/17 [History] Furosemide [Lasix 20 mg Tablet] 20 mg PO QAM 04/10/17 [History] Ibuprofen [Motrin 600 mg Tablet] 600 mg PO Q8HP PRN 04/10/17 [History] Latanoprost [Xalatan 0.005% Oph Soln 2.5 ml] 1 drop OU QHS 04/10/17 [History] Levetiracetam [Keppra 500 mg Tablet] 500 mg PO Q12 04/10/17 [History] Lisinopril [Prinivil 10 mg Tablet] 10 mg PO DAILY 04/10/17 [History] Loratadine [Claritin 10 mg Tablet] 10 mg PO DAILY 04/10/17 [History] Lorazepam 1 mg IM DAILYP PRN 04/10/17 [History] Lorazepam [Ativan 0.5 mg Tablet] 0.5 mg PO Q8HP PRN 04/10/17 [History] Metoprolol Tartrate [Lopressor 50 mg Tablet] 50 mg PO DAILY 04/10/17 [History] Quetiapine Fumarate [Seroquel] 50 mg PO DAILY 04/10/17 [History] Quetiapine Fumarate [Seroquel] 75 mg PO QHS 04/10/17 [History] Tamsulosin HCl [Flomax 0.4 mg Cap.sr] 0.4 mg PO DAILY 04/10/17 [History] Past Medical History - Social History Smoking Status: Former Smoker Chew tobacco use (# tins/day): No Frequency of alcohol use: None Drug Abuse: None Lives with: Alf Family History: Reviewed & Not Pertinent Patient has suicidal ideation: No Patient has homicidal ideation: No - Past Medical History Cardiac Medical History: Reports: Hx Atrial Fibrillation, Hx Coronary Artery Disease, Hx Hypercholesterolemia, Hx Hypertension Pulmonary Medical History: Reports: Hx COPD Neurological Medical History: Reports: Hx Cerebrovascular Accident, Hx Seizures Renal/ Medical History: Denies: Hx Peritoneal Dialysis Malignancy Medical History: Reports None Psychiatric Medical History: Reports: Hx Dementia, Hx Depression Traumatic Medical History: Reports: None Past Surgical History: Reports: Hx Abdominal Surgery, Hx Herniorrhaphy - Immunizations Hx Diphtheria, Pertussis, Tetanus Vaccination: Yes Review of Systems - Review of Systems -: Yes ROS unobtainable due to patient's medical condition - Dementia Physical Exam - Vital signs Vitals: Resp Pulse Ox 31 H 94 04/10/17 08:16 04/10/17 08:16 Interpretation: Tachycardic, Febrile - General General appearance: Other - Chronically ill chronically ill - HEENT Head: Normocephalic, Atraumatic Pupils: PERRL - Respiratory Respiratory status: No respiratory distress Chest status: Nontender Breath sounds: Rhonchi Chest palpation: Normal - Cardiovascular Rhythm: Irregularly irregular, Tachycardia Heart sounds: Normal auscultation Murmur: No - Abdominal Inspection: Normal Distension: No distension Bowel sounds: Normal Organomegaly: No organomegaly - Back Back: Normal, Nontender - Extremities General upper extremity: Normal inspection, Nontender General lower extremity: Normal inspection, Nontender - Neurological Neuro grossly intact: Yes Cognition: Confused Sensory: Normal - Skin Skin Temperature: Warm Skin Moisture: Dry Skin Color: Normal Course - Re-evaluation Re-evalutation: 04/10/17 14:19 Patient was noted planting vital signs in the ER to have a fever. Review of the patient's med rec shows that he gets daily doses of Ativan 0.5. Did give the patient a dose of Ativan 0.5 also get the patient rectal Tylenol. After menstruation of both the shaking stopped. Unclear patient actually had seizure- like activity or patient was having Reiger's. Chest x-ray does show developing pneumonia and lung examination diffuse rhonchi patient does have a history of aspiration in the past. at bedside patient currently is at his normal state after receiving Ativan according to the . Due to his cognitive decline patient mostly is nonverbal and has contractures of his extremities. Tachycardia look to be in A. fib RVR did respond to 1 dose of Cardizem. Initially a drip was ordered and this was stopped. Patient's blood pressure also responded. Will admit patient to the hospitalist service. - Vital Signs Vital signs: Temp Pulse Resp BP Pulse Ox 98.5 F 22 H 184/112 H 99 04/10/17 11:05 04/10/17 10:00 04/10/17 08:21 04/10/17 10:00 - Laboratory Result Diagrams: 04/10/17 08:20 04/10/17 08:20 Laboratory results interpreted by me: 04/10/17 04/10/17 04/10/17 08:20 08:20 08:20 RBC 5.68 H MCH 26.0 L MCHC 31.3 L RDW 15.1 H Seg Neuts % (Manual) 34 L Monocytes % (Manual) 16 H Abs Monocytes (Manual) 1.6 H VBG pH Sodium 145.9 H Potassium 5.4 H Chloride 110 H Carbon Dioxide 20 L Glucose 155 H Lactic Acid 4.8 H Alkaline Phosphatase 140 H Creatine Kinase 38 L Urine Protein Urine Blood Urine Ascorbic Acid Valproic Acid < 10.0 L 04/10/17 04/10/17 08:20 09:10 RBC MCH MCHC RDW Seg Neuts % (Manual) Monocytes % (Manual) Abs Monocytes (Manual) VBG pH 7.23 L Sodium Potassium Chloride Carbon Dioxide Glucose Lactic Acid Alkaline Phosphatase Creatine Kinase Urine Protein 100 H Urine Blood LARGE H Urine Ascorbic Acid 40 H Valproic Acid Critical Care Note - Critical Care Note Total time excluding time spent on procedures (mins): 35 Comments: Multiple evaluation for patient with fever seizure-like activity A. fib RVR Discharge - Discharge Clinical Impression: History of seizures, Do not resuscitate, atrial fibrillation Dementia Qualifiers: Dementia type: unspecified type CAD (coronary artery disease) Qualifiers: Coronary Disease-Associated Artery/Lesion type: unspecified vessel or lesion type [place] vs. transplanted heart: unspecified whether [place] or transplanted heart Associated angina: without angina Qualified Code(s): I25.10 - Atherosclerotic heart disease of [place] coronary artery without angina pectoris COPD (chronic obstructive pulmonary disease) Qualifiers: COPD type: unspecified COPD Qualified Code(s): J44.9 - Chronic obstructive pulmonary disease, unspecified Fever Qualifiers: Fever type: unspecified Qualified Code(s): R50.9 - Fever, unspecified Condition: Stable Disposition: ADMITTED INPATIENT Admitting Provider: Hospitalist - [facility] Admitted: Telemetry
[2017-04-10] MEDS: IPRATROPIUM/ALBUTEROL 0.5-2.5 MG/3 ML AMPUL NEB SCH ×2 (14:22→21:27)
[2017-04-10] MEDS: HYDRALAZINE HCL INJ/PF 20 MG/1 ML SDV IV PRN ×2 (18:07→23:27)
[2017-04-10] MEDS: DOCUSATE SODIUM 100 MG CAPSULE PO SCH (18:08)
[2017-04-10] MEDS ORDERED: LORAZEPAM INJ 2 MG/1 ML VIAL ONE ×2 (19:31→19:40)
[2017-04-10] MEDS ORDERED: METOPROLOL TARTRATE PF/INJ 5 MG/5 ML SDV IV ONE ×2 (20:14→21:00)
[2017-04-10] MEDS: DIVALPROEX SODIUM 125 MG CAP.SPRINK PO SCH (21:03)
[2017-04-10] MEDS: BUPROPION HCL 75 MG TABLET PO SCH (21:03)
[2017-04-10] MEDS: BUDESONIDE/FORMOTEROL 160-4.5 MCG 60 PUFF/6 GM MDI IH SCH (21:03)
[2017-04-10] MEDS: QUETIAPINE FUMARATE 25 MG TABLET PO SCH (21:03)
[2017-04-10] MEDS ORDERED: VALPROATE SODIUM 500 MG in NORMAL SALINE 100 ML IV ONE (22:00)
[2017-04-10] MEDS ORDERED: LEVETIRACETAM 500 MG TABLET PO SCH (22:00)
[2017-04-10] MEDS ORDERED: CLONIDINE HCL 0.2 MG TABLET PO SCH (22:00)
[2017-04-10] MEDS ORDERED: (PENDING PHARMACY ID) (Quetiapine Fumarate [Seroquel] 75 MG) PO SCH (22:00)
[2017-04-10] MEDS: CLONIDINE 0.2 MG/24 HR PATCH.TDWK TD SCH (22:10)
[2017-04-10] MEDS: LATANOPROST 0.005% OPH SOLN 2.5 ML OU SCH (22:12)
[2017-04-10] MEDS: NORMAL SALINE 1000 ML 1,000 ML IV PRN (22:13)
[2017-04-11] MEDS ORDERED: METOPROLOL TARTRATE PF/INJ 5 MG/5 ML SDV IV ONE ×3 (00:16→21:43)
[2017-04-11] MEDS ORDERED: HYDRALAZINE HCL INJ/PF 20 MG/1 ML SDV ONE (00:17)
[2017-04-11] MEDS ORDERED: HYDRALAZINE HCL INJ/PF 20 MG/1 ML SDV IV ONE (00:30)
[2017-04-11] MEDS: IPRATROPIUM/ALBUTEROL 0.5-2.5 MG/3 ML AMPUL NEB SCH ×4 (01:43→20:37)
[2017-04-11 06:13] LABS: ABSOLUTE BASOPHILS # (AUTO) 0.1 10^3/uL (0.0-0.2); ABSOLUTE LYMPHOCYTES (AUTO) 1.7 10^3/uL (0.5-4.7); ABSOLUTE MONOCYTES (AUTO) 0.5 10^3/uL (0.1-1.4); ABSOLUTE NEUT (AUTO) 5.8 10^3/uL (1.7-8.2); BASOPHILS % (AUTO) 0.8 % (0-2); EOSINOPHILS % (AUTO) 0.3 % (0-6); HEMATOCRIT 42.1 % (37.9-51.0); HEMOGLOBIN 13.7 g/dL (13.5-17.0); LYMPHOCYTES % (AUTO) 20.9 % (13-45); MEAN CORPUSCULAR HEMOGLOBIN 26.2 pg (27.0-33.4); MEAN CORPUSCULAR HGB CONC 32.5 g/dL (32.0-36.0); MEAN CORPUSCULAR VOLUME 81 fl (80-97); MONOCYTES % (AUTO) 6.3 % (3-13); PLATELET COUNT 192 10^3/uL (150-450); RED BLOOD COUNT 5.21 10^6/uL (4.35-5.55); SEGMENTED NEUTROPHILS % (AUTO) 71.7 % (42-78); TOTAL CELLS COUNTED % (AUTO) 100 %
[2017-04-11 06:32] LABS: ANION GAP 12 (5-19); BLOOD UREA NITROGEN 15 mg/dL (7-20); CALCIUM 9.5 mg/dL (8.4-10.2); CARBON DIOXIDE 24 mmol/L (22-30); CHLORIDE 107 mmol/L (98-107); GLUCOSE 111 mg/dL (75-110); SODIUM 142.6 mmol/L (137-145)
[2017-04-11 06:41] LABS: POTASSIUM 4.4 mmol/L (3.6-5.0)
[2017-04-11] MEDS ORDERED: FUROSEMIDE 20 MG TABLET PO SCH (08:00)
[2017-04-11] MEDS: HYDRALAZINE HCL INJ/PF 20 MG/1 ML SDV IV PRN ×2 (08:52→20:55)
[2017-04-11] MEDS ORDERED: (PENDING PHARMACY ID) (Quetiapine Fumarate [Seroquel] 50 MG) PO SCH (10:00)
[2017-04-11] MEDS ORDERED: CLONIDINE 0.2 MG/24 HR PATCH.TDWK TD SCH (10:00)
[2017-04-11] MEDS: ENOXAPARIN SODIUM INJ 40 MG/0.4 ML DISP.SYRIN SUBCUT SCH (10:15)
[2017-04-11] MEDS: LEVETIRACETAM 500 MG/NACL-ISO 500 MG/100 ML RTUPB IV SCH (10:15)
[2017-04-11] MEDS: QUETIAPINE FUMARATE 25 MG TABLET PO SCH ×2 (10:27→23:43)
[2017-04-11] MEDS: LORATADINE 10 MG TABLET PO SCH (10:27)
[2017-04-11] MEDS: TAMSULOSIN HCL 0.4 MG CAP.SR.24H PO SCH (10:27)
[2017-04-11] MEDS: BUPROPION HCL 75 MG TABLET PO SCH ×2 (10:27→23:42)
[2017-04-11] MEDS: BUDESONIDE/FORMOTEROL 160-4.5 MCG 60 PUFF/6 GM MDI IH SCH ×2 (10:27→23:51)
[2017-04-11] MEDS: DIVALPROEX SODIUM 125 MG CAP.SPRINK PO SCH ×2 (10:27→23:43)
[2017-04-11] MEDS: FINASTERIDE 5 MG TABLET PO SCH (10:27)
[2017-04-11] MEDS: DOCUSATE SODIUM 100 MG CAPSULE PO SCH ×2 (10:27→17:06)
[2017-04-11] MEDS: LISINOPRIL 10 MG TABLET PO SCH (10:27)
[2017-04-11] MEDS: METOPROLOL TARTRATE 50 MG TABLET PO SCH (10:27)
[2017-04-11] MEDS: METOPROLOL TARTRATE PF/INJ 5 MG/5 ML SDV IV PRN ×3 (11:21→20:00)
[2017-04-11] MEDS: LEVOFLOXACIN 750 MG/D5W RTU 750 MG/150 ML RTUPB IV SCH (11:22)
[2017-04-11] MEDS ORDERED: DILTIAZEM HCL INJ 25 MG/5 ML VIAL IV ONE (12:03)
--- NOTE | 2017-04-11 15:03 | PDOC PROGRESS REPORT ---
Subjective Progress Note for:: 04/11/17 Subjective:: Has developed atrial fibrillation with rapid ventricular rate. He also has had several seizures this morning. Reason For Visit: PNEUMONIA Physical Exam Vital Signs: Temp Pulse Resp BP Pulse Ox 98.3 F 129 H 20 178/127 H 99 04/11/17 11:39 04/11/17 11:39 04/11/17 11:39 04/11/17 11:39 04/11/17 11:39 Intake & Output 04/10/17 04/11/17 04/12/17 06:59 06:59 06:59 Intake Total 385 Balance 385 Weight 65.2 kg General appearance: PRESENT: no acute distress Eye exam: PRESENT: conjunctiva pink. ABSENT: scleral icterus Mouth exam: PRESENT: moist, tongue midline Neck exam: ABSENT: JVD Respiratory exam: PRESENT: rhonchi - Coarse rhonchi bilaterally.. ABSENT: rales , wheezes Cardiovascular exam: PRESENT: irregular rhythm. ABSENT: diastolic murmur, rubs , systolic murmur GI/Abdominal exam: PRESENT: normal bowel sounds, soft. ABSENT: distended, guarding, mass, organolmegaly, rebound, tenderness Extremities exam: ABSENT: calf tenderness, clubbing, pedal edema Neurological exam: PRESENT: other - Contracture of the left arm Psychiatric exam: PRESENT: other - Unresponsive at the time of my exam secondary to being postictal Skin exam: PRESENT: dry, intact, warm. ABSENT: cyanosis, rash Results Laboratory Results: 04/11/17 05:45 04/11/17 05:45 04/10/17 04/11/17 04/11/17 14:46 05:45 05:45 WBC 8.0 RBC 5.21 Hgb 13.7 Hct 42.1 MCV 81 MCH 26.2 L MCHC 32.5 RDW 15.0 H Plt Count 192 Seg Neutrophils % 71.7 Lymphocytes % 20.9 Monocytes % 6.3 Eosinophils % 0.3 Basophils % 0.8 Absolute Neutrophils 5.8 Absolute Lymphocytes 1.7 Absolute Monocytes 0.5 Absolute Eosinophils 0.0 Absolute Basophils 0.1 Sodium 142.6 Potassium 4.4 D Chloride 107 Carbon Dioxide 24 Anion Gap 12 BUN 15 Creatinine 0.89 Est GFR ( Amer) > 60 Est GFR (Non-Af Amer) > 60 Glucose 111 H Lactic Acid 2.2 H Calcium 9.5 Impressions: Chest X-Ray 04/10/17 08:18 IMPRESSION: MILD ELEVATION OF THE LEFT HEMIDIAPHRAGM. POSSIBLE PATCHY CONSOLIDATION IN THE RETROCARDIAC LEFT LUNG BASE, DIFFICULT TO VISUALIZE. RIGHT LUNG CLEAR. Head CT 04/10/17 08:25 IMPRESSION: CHRONIC CHANGES OF ATROPHY AND MICROVASCULAR ISCHEMIA. NO ACUTE PROCESS. EVIDENCE OF ACUTE STROKE: NO. Assessment & Plan - Diagnosis (1) Aspiration pneumonia Qualifiers: Is this a current diagnosis for this admission?: Yes Plan: The patient had fever and rigors. Chest x-ray does not show an obvious infiltrate but clinically has a right-sided pneumonia. Will treat with Levaquin. Blood cultures have been obtained. (2) CAD (coronary artery disease) Qualifiers: Coronary Disease-Associated Artery/Lesion type: unspecified vessel or lesion type [place] vs. transplanted heart: unspecified whether [place] or transplanted heart Associated angina: without angina Qualified Code(s): I25.10 - Atherosclerotic heart disease of [place] coronary artery without angina pectoris Is this a current diagnosis for this admission?: Yes (3) COPD (chronic obstructive pulmonary disease) Qualifiers: COPD type: unspecified COPD Qualified Code(s): J44.9 - Chronic obstructive pulmonary disease, unspecified Is this a current diagnosis for this admission?: Yes Plan: Continue with nebulizers as needed (4) Dementia Qualifiers: Dementia type: unspecified type Is this a current diagnosis for this admission?: Yes (5) Hyperlipidemia Is this a current diagnosis for this admission?: Yes (6) Seizure Is this a current diagnosis for this admission?: Yes Plan: Continue with IV Keppra (7) Do not resuscitate Is this a current diagnosis for this admission?: Yes (8) Atrial fibrillation Is this a current diagnosis for this admission?: Yes Plan: Patient will be started on on a diltiazem drip. - Time Time Spent with patient: 25-34 minutes - Inpatient Certification Medical Necessity: Need Close Monitoring Due to Risk of Patient Decompensation, Need for IV Antibiotics
[2017-04-11] MEDS: NORMAL SALINE 1000 ML 1,000 ML IV PRN (16:47)
[2017-04-11] MEDS ORDERED: LEVETIRACETAM INJ/PF 500 MG/5 ML SDV IV ONE (17:00)
[2017-04-11] MEDS ORDERED: LEVETIRACETAM 500 MG/NACL-ISO 500 MG/100 ML RTUPB IV ONE (17:30)
[2017-04-11] MEDS: LATANOPROST 0.005% OPH SOLN 2.5 ML OU SCH (23:51)
[2017-04-12] MEDS: METOPROLOL TARTRATE PF/INJ 5 MG/5 ML SDV IV PRN ×2 (00:15→08:23)
[2017-04-12] MEDS: IPRATROPIUM/ALBUTEROL 0.5-2.5 MG/3 ML AMPUL NEB SCH ×4 (02:11→20:37)
[2017-04-12] MEDS: NORMAL SALINE 1000 ML 1,000 ML IV PRN (02:54)
[2017-04-12 07:34] LABS: ABSOLUTE BASOPHILS # (AUTO) 0.1 10^3/uL (0.0-0.2); ABSOLUTE LYMPHOCYTES (AUTO) 1.1 10^3/uL (0.5-4.7); ABSOLUTE MONOCYTES (AUTO) 0.5 10^3/uL (0.1-1.4); ABSOLUTE NEUT (AUTO) 4.7 10^3/uL (1.7-8.2); BASOPHILS % (AUTO) 0.8 % (0-2); EOSINOPHILS % (AUTO) 0.2 % (0-6); HEMATOCRIT 41.1 % (37.9-51.0); HEMOGLOBIN 13.1 g/dL (13.5-17.0); LYMPHOCYTES % (AUTO) 18.1 % (13-45); MEAN CORPUSCULAR HEMOGLOBIN 25.9 pg (27.0-33.4); MEAN CORPUSCULAR HGB CONC 31.8 g/dL (32.0-36.0); MEAN CORPUSCULAR VOLUME 82 fl (80-97); MONOCYTES % (AUTO) 7.5 % (3-13); PLATELET COUNT 194 10^3/uL (150-450); RED BLOOD COUNT 5.04 10^6/uL (4.35-5.55); RED CELL DISTRIBUTION WIDTH 14.9 % (11.5-14.0); SEGMENTED NEUTROPHILS % (AUTO) 73.4 % (42-78); TOTAL CELLS COUNTED % (AUTO) 100 %; WHITE BLOOD COUNT 6.4 10^3/uL (4.0-10.5)
[2017-04-12 07:48] LABS: ANION GAP 11 (5-19); BLOOD UREA NITROGEN 13 mg/dL (7-20); CALCIUM 9.2 mg/dL (8.4-10.2); CARBON DIOXIDE 22 mmol/L (22-30); CHLORIDE 108 mmol/L (98-107); GLUCOSE 93 mg/dL (75-110); SODIUM 140.9 mmol/L (137-145)
[2017-04-12] MEDS: HYDRALAZINE HCL INJ/PF 20 MG/1 ML SDV IV PRN (07:52)
[2017-04-12] MEDS: DILTIAZEM HCL/D5W 125 MG/125 ML RTUINJ IV PRN (08:44)
[2017-04-12] MEDS: ENOXAPARIN SODIUM INJ 40 MG/0.4 ML DISP.SYRIN SUBCUT SCH (10:59)
[2017-04-12] MEDS: TAMSULOSIN HCL 0.4 MG CAP.SR.24H PO SCH (10:59)
[2017-04-12] MEDS: METOPROLOL TARTRATE 50 MG TABLET PO SCH (11:00)
[2017-04-12] MEDS: DIVALPROEX SODIUM 125 MG CAP.SPRINK PO SCH ×2 (11:01→21:36)
[2017-04-12] MEDS: BUPROPION HCL 75 MG TABLET PO SCH ×2 (11:01→21:36)
[2017-04-12] MEDS: FINASTERIDE 5 MG TABLET PO SCH (11:02)
[2017-04-12] MEDS: LORATADINE 10 MG TABLET PO SCH (11:02)
[2017-04-12] MEDS: QUETIAPINE FUMARATE 25 MG TABLET PO SCH ×2 (11:03→21:37)
[2017-04-12] MEDS: DOCUSATE SODIUM 100 MG CAPSULE PO SCH ×2 (11:04→17:34)
[2017-04-12] MEDS: LISINOPRIL 10 MG TABLET PO SCH (11:06)
[2017-04-12] MEDS: LEVOFLOXACIN 750 MG/D5W RTU 750 MG/150 ML RTUPB IV SCH (11:08)
--- NOTE | 2017-04-12 12:03 | PDOC PROGRESS REPORT ---
Subjective Progress Note for:: 04/12/17 Subjective:: Does not respond this morning. Reason For Visit: PNEUMONIA Physical Exam Vital Signs: Temp Pulse Resp BP Pulse Ox 98.1 F 120 H 20 158/112 H 100 04/12/17 07:30 04/12/17 11:22 04/12/17 08:48 04/12/17 11:22 04/12/17 08:48 Intake & Output 04/11/17 04/12/17 04/13/17 06:59 06:59 06:59 Intake Total 385 2000 Balance 385 1999 Weight 65.2 kg 63.6 kg General appearance: PRESENT: no acute distress Eye exam: PRESENT: conjunctiva pink. ABSENT: scleral icterus Mouth exam: PRESENT: moist, tongue midline Neck exam: ABSENT: JVD Respiratory exam: PRESENT: clear to auscultation karine. ABSENT: rales, rhonchi, wheezes Cardiovascular exam: PRESENT: irregular rhythm, tachycardia. ABSENT: diastolic murmur, rubs, systolic murmur GI/Abdominal exam: PRESENT: normal bowel sounds, soft. ABSENT: distended, guarding, mass, organolmegaly, rebound, tenderness Neurological exam: PRESENT: altered Psychiatric exam: PRESENT: flat affect Skin exam: PRESENT: dry, intact, warm. ABSENT: cyanosis, rash Results Laboratory Results: 04/12/17 06:35 04/12/17 06:35 04/12/17 04/12/17 06:35 06:35 WBC 6.4 RBC 5.04 Hgb 13.1 L Hct 41.1 MCV 82 MCH 25.9 L MCHC 31.8 L RDW 14.9 H Plt Count 194 Seg Neutrophils % 73.4 Lymphocytes % 18.1 Monocytes % 7.5 Eosinophils % 0.2 Basophils % 0.8 Absolute Neutrophils 4.7 Absolute Lymphocytes 1.1 Absolute Monocytes 0.5 Absolute Eosinophils 0.0 Absolute Basophils 0.1 Sodium 140.9 Potassium 4.0 Chloride 108 H Carbon Dioxide 22 Anion Gap 11 BUN 13 Creatinine 0.81 Est GFR ( Amer) > 60 Est GFR (Non-Af Amer) > 60 Glucose 93 Calcium 9.2 Impressions: Chest X-Ray 04/10/17 08:18 IMPRESSION: MILD ELEVATION OF THE LEFT HEMIDIAPHRAGM. POSSIBLE PATCHY CONSOLIDATION IN THE RETROCARDIAC LEFT LUNG BASE, DIFFICULT TO VISUALIZE. RIGHT LUNG CLEAR. Head CT 04/10/17 08:25 IMPRESSION: CHRONIC CHANGES OF ATROPHY AND MICROVASCULAR ISCHEMIA. NO ACUTE PROCESS. EVIDENCE OF ACUTE STROKE: NO. Assessment & Plan - Diagnosis (1) Aspiration pneumonia Qualifiers: Is this a current diagnosis for this admission?: Yes Plan: The patient had fever and rigors. Chest x-ray does not show an obvious infiltrate but clinically has a right-sided pneumonia. Will treat with Levaquin. Blood cultures are negative so far. (2) CAD (coronary artery disease) Qualifiers: Coronary Disease-Associated Artery/Lesion type: unspecified vessel or lesion type [place] vs. transplanted heart: unspecified whether [place] or transplanted heart Associated angina: without angina Qualified Code(s): I25.10 - Atherosclerotic heart disease of [place] coronary artery without angina pectoris Is this a current diagnosis for this admission?: Yes (3) COPD (chronic obstructive pulmonary disease) Qualifiers: COPD type: unspecified COPD Qualified Code(s): J44.9 - Chronic obstructive pulmonary disease, unspecified Is this a current diagnosis for this admission?: Yes Plan: Continue with nebulizers as needed (4) Dementia Qualifiers: Dementia type: unspecified type Is this a current diagnosis for this admission?: Yes (5) Hyperlipidemia Is this a current diagnosis for this admission?: Yes (6) Seizure Is this a current diagnosis for this admission?: Yes Plan: Continue with IV Keppra (7) Do not resuscitate Is this a current diagnosis for this admission?: Yes (8) Atrial fibrillation Is this a current diagnosis for this admission?: Yes Plan: Patient is tachycardic this morning. Will restart the diltiazem drip. - Time Time Spent with patient: 25-34 minutes - Inpatient Certification Medical Necessity: Need Close Monitoring Due to Risk of Patient Decompensation
[2017-04-12] MEDS: BUDESONIDE/FORMOTEROL 160-4.5 MCG 60 PUFF/6 GM MDI IH SCH ×2 (13:28→21:39)
[2017-04-12] MEDS: LEVETIRACETAM 500 MG/NACL-ISO 500 MG/100 ML RTUPB IV SCH (13:28)
[2017-04-12] MEDS: LATANOPROST 0.005% OPH SOLN 2.5 ML OU SCH (21:39)
[2017-04-13] MEDS: IPRATROPIUM/ALBUTEROL 0.5-2.5 MG/3 ML AMPUL NEB SCH ×4 (01:08→20:30)
[2017-04-13] MEDS: METOPROLOL TARTRATE PF/INJ 5 MG/5 ML SDV IV PRN (02:24)
[2017-04-13] MEDS: DILTIAZEM HCL/D5W 125 MG/125 ML RTUINJ IV PRN (05:14)
[2017-04-13] MEDS: NORMAL SALINE 1000 ML 1,000 ML IV PRN (05:15)
[2017-04-13 06:34] LABS: ABSOLUTE LYMPHOCYTES (AUTO) 1.2 10^3/uL (0.5-4.7); ABSOLUTE MONOCYTES (AUTO) 0.4 10^3/uL (0.1-1.4); ABSOLUTE NEUT (AUTO) 3.8 10^3/uL (1.7-8.2); BASOPHILS % (AUTO) 0.9 % (0-2); EOSINOPHILS % (AUTO) 0.9 % (0-6); HEMATOCRIT 38.7 % (37.9-51.0); HEMOGLOBIN 12.5 g/dL (13.5-17.0); LYMPHOCYTES % (AUTO) 21.8 % (13-45); MEAN CORPUSCULAR HEMOGLOBIN 26.2 pg (27.0-33.4); MEAN CORPUSCULAR HGB CONC 32.2 g/dL (32.0-36.0); MEAN CORPUSCULAR VOLUME 81 fl (80-97); PLATELET COUNT 150 10^3/uL (150-450); RED BLOOD COUNT 4.76 10^6/uL (4.35-5.55); RED CELL DISTRIBUTION WIDTH 14.9 % (11.5-14.0); SEGMENTED NEUTROPHILS % (AUTO) 68.4 % (42-78); TOTAL CELLS COUNTED % (AUTO) 100 %; WHITE BLOOD COUNT 5.5 10^3/uL (4.0-10.5)
[2017-04-13 06:59] LABS: ANION GAP 8 (5-19); BLOOD UREA NITROGEN 15 mg/dL (7-20); CALCIUM 8.8 mg/dL (8.4-10.2); CARBON DIOXIDE 25 mmol/L (22-30); CHLORIDE 111 mmol/L (98-107); GLUCOSE 93 mg/dL (75-110); POTASSIUM 3.7 mmol/L (3.6-5.0); SODIUM 143.7 mmol/L (137-145)
[2017-04-13] MEDS: ENOXAPARIN SODIUM INJ 40 MG/0.4 ML DISP.SYRIN SUBCUT SCH (09:48)
[2017-04-13] MEDS: FINASTERIDE 5 MG TABLET PO SCH (09:49)
[2017-04-13] MEDS: DOCUSATE SODIUM 100 MG CAPSULE PO SCH ×2 (09:49→17:15)
[2017-04-13] MEDS: BUPROPION HCL 75 MG TABLET PO SCH ×2 (09:49→21:57)
[2017-04-13] MEDS: TAMSULOSIN HCL 0.4 MG CAP.SR.24H PO SCH (09:49)
[2017-04-13] MEDS: DIVALPROEX SODIUM 125 MG CAP.SPRINK PO SCH ×2 (09:49→21:57)
[2017-04-13] MEDS: QUETIAPINE FUMARATE 25 MG TABLET PO SCH ×2 (09:50→21:57)
[2017-04-13] MEDS: METOPROLOL TARTRATE 50 MG TABLET PO SCH (09:50)
[2017-04-13] MEDS: LISINOPRIL 10 MG TABLET PO SCH (09:50)
[2017-04-13] MEDS: LORATADINE 10 MG TABLET PO SCH (09:51)
[2017-04-13] MEDS: LEVOFLOXACIN 750 MG/D5W RTU 750 MG/150 ML RTUPB IV SCH (09:51)
[2017-04-13] MEDS: BUDESONIDE/FORMOTEROL 160-4.5 MCG 60 PUFF/6 GM MDI IH SCH ×2 (09:52→21:57)
[2017-04-13] MEDS: LEVETIRACETAM 500 MG/NACL-ISO 500 MG/100 ML RTUPB IV SCH (09:52)
--- NOTE | 2017-04-13 12:46 | PDOC PROGRESS REPORT ---
Subjective Progress Note for:: 04/13/17 Subjective:: Is more responsive this morning. Reason For Visit: PNEUMONIA Physical Exam Vital Signs: Temp Pulse Resp BP Pulse Ox 97.4 F 60 16 126/83 H 100 04/12/17 16:56 04/13/17 12:00 04/13/17 07:46 04/13/17 12:00 04/13/17 07:46 Intake & Output 04/12/17 04/13/17 04/14/17 06:59 06:59 06:59 Intake Total 1999 267 Balance 19998 Weight 63.6 kg General appearance: PRESENT: no acute distress Eye exam: PRESENT: conjunctiva pink. ABSENT: scleral icterus Mouth exam: PRESENT: moist, tongue midline Neck exam: ABSENT: JVD Respiratory exam: PRESENT: rhonchi. ABSENT: rales, wheezes Cardiovascular exam: PRESENT: irregular rhythm. ABSENT: diastolic murmur, rubs , systolic murmur GI/Abdominal exam: PRESENT: normal bowel sounds, soft. ABSENT: distended, guarding, mass, organolmegaly, rebound, tenderness Extremities exam: ABSENT: calf tenderness, clubbing, pedal edema Neurological exam: PRESENT: awake. ABSENT: oriented to person, oriented to place, oriented to time, oriented to situation Psychiatric exam: PRESENT: appropriate affect Skin exam: PRESENT: dry, intact, warm. ABSENT: cyanosis, rash Results Laboratory Results: 04/13/17 06:10 04/13/17 06:10 04/13/17 04/13/17 06:10 06:10 WBC 5.5 RBC 4.76 Hgb 12.5 L Hct 38.7 MCV 81 MCH 26.2 L MCHC 32.2 RDW 14.9 H Plt Count 150 Seg Neutrophils % 68.4 Lymphocytes % 21.8 Monocytes % 8.0 Eosinophils % 0.9 Basophils % 0.9 Absolute Neutrophils 3.8 Absolute Lymphocytes 1.2 Absolute Monocytes 0.4 Absolute Eosinophils 0.0 Absolute Basophils 0.0 Sodium 143.7 Potassium 3.7 Chloride 111 H Carbon Dioxide 25 Anion Gap 8 BUN 15 Creatinine 0.97 Est GFR ( Amer) > 60 Est GFR (Non-Af Amer) > 60 Glucose 93 Calcium 8.8 Impressions: Chest X-Ray 04/10/17 08:18 IMPRESSION: MILD ELEVATION OF THE LEFT HEMIDIAPHRAGM. POSSIBLE PATCHY CONSOLIDATION IN THE RETROCARDIAC LEFT LUNG BASE, DIFFICULT TO VISUALIZE. RIGHT LUNG CLEAR. Head CT 04/10/17 08:25 IMPRESSION: CHRONIC CHANGES OF ATROPHY AND MICROVASCULAR ISCHEMIA. NO ACUTE PROCESS. EVIDENCE OF ACUTE STROKE: NO. Assessment & Plan - Diagnosis (1) Aspiration pneumonia Qualifiers: Is this a current diagnosis for this admission?: Yes Plan: Chest x-ray does not show an obvious infiltrate but clinically has a right- sided pneumonia. Will continue with Levaquin. Blood cultures are negative so far. (2) CAD (coronary artery disease) Qualifiers: Coronary Disease-Associated Artery/Lesion type: unspecified vessel or lesion type [place] vs. transplanted heart: unspecified whether [place] or transplanted heart Associated angina: without angina Qualified Code(s): I25.10 - Atherosclerotic heart disease of [place] coronary artery without angina pectoris Is this a current diagnosis for this admission?: Yes (3) COPD (chronic obstructive pulmonary disease) Qualifiers: COPD type: unspecified COPD Qualified Code(s): J44.9 - Chronic obstructive pulmonary disease, unspecified Is this a current diagnosis for this admission?: Yes Plan: Continue with nebulizers as needed (4) Dementia Qualifiers: Dementia type: unspecified type Is this a current diagnosis for this admission?: Yes (5) Hyperlipidemia Is this a current diagnosis for this admission?: Yes (6) Seizure Is this a current diagnosis for this admission?: Yes Plan: Continue with IV Keppra (7) Do not resuscitate Is this a current diagnosis for this admission?: Yes (8) Atrial fibrillation Is this a current diagnosis for this admission?: Yes Plan: patient is rate controlled. Will DC the diltiazem drip and switch to p.o. diltiazem. He is already on a beta-chris. - Time Time Spent with patient: 25-34 minutes - Inpatient Certification Medical Necessity: Need Close Monitoring Due to Risk of Patient Decompensation, Need for IV Antibiotics
--- NOTE | 2017-04-13 13:12 | Physician Advisory Note ---
Physician Advisor ProgressNote .: Pursuant to the plan for [facility], I have reviewed the medical record for this patient. Physician Advisor Statement: Nice documentation of findings supporting dx of PNA: fever, rigors, coarse rhonchi on exam, tachycardia, tachypnea >24, consolidation/infiltrate on CXR, previous aspiration with suspected recurrent aspiration (bedbound pt, aspirations do not have to be witnessed to have occurred) .... Please consider documenting, if you agree: 1. "Acute Hypernatremia, likely due to intravascular volume depletion" 2. "underweight with protein-calorie malnutrition [state mild, mod, or severe] with BMI 17.5, ____[?wt loss, ?appetite loss, ]" [if possible, give specifics on intake, wt loss, loss of SQ fat & muscle mass, diminished hand core manager strength, & clinical importance such as (A) nutritional assessment ordered, (B) modified diet or supplements ordered, (C) additional labs ordered, (D) prolonged wound healing time, (E) delayed infxn clearance] 3. If any further evidence of aspiration PNA found, please document it, too ( cough, sputum, pleuritic CP, dyspnea, ... - PNA is one of the dx.s that payers are really 2nd-guessing drs on these days.... Thanks! CK
[2017-04-13] MEDS: DILTIAZEM HCL 30 MG TABLET PO SCH (17:14)
[2017-04-13] MEDS: LATANOPROST 0.005% OPH SOLN 2.5 ML OU SCH (21:57)
[2017-04-13] MEDS: HYDRALAZINE HCL INJ/PF 20 MG/1 ML SDV IV PRN (23:35)
[2017-04-13] MEDS ORDERED: LEVETIRACETAM 500 MG/NACL-ISO 500 MG/100 ML RTUPB IV ONE ×2 (23:45→23:53)
[2017-04-14] MEDS: DILTIAZEM HCL 30 MG TABLET PO SCH ×4 (01:48→18:07)
[2017-04-14] MEDS: IPRATROPIUM/ALBUTEROL 0.5-2.5 MG/3 ML AMPUL NEB SCH ×4 (02:31→21:23)
[2017-04-14] MEDS: METOPROLOL TARTRATE PF/INJ 5 MG/5 ML SDV IV PRN (03:21)
[2017-04-14] MEDS: NORMAL SALINE 1000 ML 1,000 ML IV PRN ×3 (03:55→23:15)
[2017-04-14 05:37] LABS: ABSOLUTE BASOPHILS # (AUTO) 0.1 10^3/uL (0.0-0.2); ABSOLUTE LYMPHOCYTES (AUTO) 1.2 10^3/uL (0.5-4.7); ABSOLUTE MONOCYTES (AUTO) 0.5 10^3/uL (0.1-1.4); ABSOLUTE NEUT (AUTO) 3.3 10^3/uL (1.7-8.2); BASOPHILS % (AUTO) 1.1 % (0-2); EOSINOPHILS % (AUTO) 0.9 % (0-6); HEMATOCRIT 37.9 % (37.9-51.0); HEMOGLOBIN 12.2 g/dL (13.5-17.0); LYMPHOCYTES % (AUTO) 23.2 % (13-45); MEAN CORPUSCULAR HEMOGLOBIN 26.1 pg (27.0-33.4); MEAN CORPUSCULAR HGB CONC 32.3 g/dL (32.0-36.0); MEAN CORPUSCULAR VOLUME 81 fl (80-97); MONOCYTES % (AUTO) 9.6 % (3-13); PLATELET COUNT 162 10^3/uL (150-450); RED BLOOD COUNT 4.69 10^6/uL (4.35-5.55); RED CELL DISTRIBUTION WIDTH 14.8 % (11.5-14.0); SEGMENTED NEUTROPHILS % (AUTO) 65.2 % (42-78); TOTAL CELLS COUNTED % (AUTO) 100 %; WHITE BLOOD COUNT 5.1 10^3/uL (4.0-10.5)
[2017-04-14 05:56] LABS: ANION GAP 7 (5-19); BLOOD UREA NITROGEN 12 mg/dL (7-20); CALCIUM 8.8 mg/dL (8.4-10.2); CARBON DIOXIDE 24 mmol/L (22-30); CHLORIDE 111 mmol/L (98-107); GLUCOSE 93 mg/dL (75-110); POTASSIUM 3.5 mmol/L (3.6-5.0); SODIUM 142.1 mmol/L (137-145)
[2017-04-14] MEDS: ENOXAPARIN SODIUM INJ 40 MG/0.4 ML DISP.SYRIN SUBCUT SCH (10:45)
[2017-04-14] MEDS: LORATADINE 10 MG TABLET PO SCH (10:46)
[2017-04-14] MEDS: BUPROPION HCL 75 MG TABLET PO SCH ×2 (10:46→23:14)
[2017-04-14] MEDS: TAMSULOSIN HCL 0.4 MG CAP.SR.24H PO SCH (10:46)
[2017-04-14] MEDS: DOCUSATE SODIUM 100 MG CAPSULE PO SCH ×2 (10:46→18:07)
[2017-04-14] MEDS: LISINOPRIL 10 MG TABLET PO SCH (10:47)
[2017-04-14] MEDS: FINASTERIDE 5 MG TABLET PO SCH (10:47)
[2017-04-14] MEDS: METOPROLOL TARTRATE 50 MG TABLET PO SCH (10:47)
[2017-04-14] MEDS: LEVOFLOXACIN 750 MG/D5W RTU 750 MG/150 ML RTUPB IV SCH (10:48)
[2017-04-14] MEDS: LEVETIRACETAM 500 MG/NACL-ISO 500 MG/100 ML RTUPB IV SCH ×2 (10:48→21:21)
[2017-04-14] MEDS: QUETIAPINE FUMARATE 25 MG TABLET PO SCH ×2 (10:48→23:14)
[2017-04-14] MEDS: DIVALPROEX SODIUM 125 MG CAP.SPRINK PO SCH ×2 (10:48→23:14)
[2017-04-14] MEDS: HYDRALAZINE HCL INJ/PF 20 MG/1 ML SDV IV PRN (11:13)
[2017-04-14] MEDS: BUDESONIDE/FORMOTEROL 160-4.5 MCG 60 PUFF/6 GM MDI IH SCH ×2 (11:16→23:14)
--- NOTE | 2017-04-14 12:42 | PDOC PROGRESS REPORT ---
Subjective Progress Note for:: 04/14/17 Subjective:: patient had 3 seizures overnight. Reason For Visit: PNEUMONIA Physical Exam Vital Signs: Temp Pulse Resp BP Pulse Ox 97.3 F 52 L 21 H 169/117 H 98 04/14/17 07:23 04/14/17 08:13 04/14/17 08:13 04/14/17 07:23 04/14/17 08:13 Intake & Output 04/13/17 04/14/17 04/15/17 06:59 06:59 06:59 Intake Total 2678 2861 Balance 2678 2861 Weight 65.6 kg 67.7 kg General appearance: PRESENT: no acute distress Eye exam: PRESENT: conjunctiva pink. ABSENT: scleral icterus Mouth exam: PRESENT: moist, tongue midline Neck exam: ABSENT: JVD Respiratory exam: PRESENT: clear to auscultation karine. ABSENT: rales, rhonchi, wheezes Cardiovascular exam: PRESENT: irregular rhythm. ABSENT: diastolic murmur, rubs , systolic murmur GI/Abdominal exam: PRESENT: normal bowel sounds, soft. ABSENT: distended, guarding, mass, organolmegaly, rebound, tenderness Extremities exam: ABSENT: calf tenderness, clubbing, pedal edema Psychiatric exam: PRESENT: flat affect Skin exam: PRESENT: dry, intact, warm. ABSENT: cyanosis, rash Results Laboratory Results: 04/14/17 05:13 04/14/17 05:13 04/14/17 04/14/17 05:13 05:13 WBC 5.1 RBC 4.69 Hgb 12.2 L Hct 37.9 MCV 81 MCH 26.1 L MCHC 32.3 RDW 14.8 H Plt Count 162 Seg Neutrophils % 65.2 Lymphocytes % 23.2 Monocytes % 9.6 Eosinophils % 0.9 Basophils % 1.1 Absolute Neutrophils 3.3 Absolute Lymphocytes 1.2 Absolute Monocytes 0.5 Absolute Eosinophils 0.0 Absolute Basophils 0.1 Sodium 142.1 Potassium 3.5 L Chloride 111 H Carbon Dioxide 24 Anion Gap 7 BUN 12 Creatinine 0.90 Est GFR ( Amer) > 60 Est GFR (Non-Af Amer) > 60 Glucose 93 Calcium 8.8 Impressions: Chest X-Ray 04/10/17 08:18 IMPRESSION: MILD ELEVATION OF THE LEFT HEMIDIAPHRAGM. POSSIBLE PATCHY CONSOLIDATION IN THE RETROCARDIAC LEFT LUNG BASE, DIFFICULT TO VISUALIZE. RIGHT LUNG CLEAR. Head CT 04/10/17 08:25 IMPRESSION: CHRONIC CHANGES OF ATROPHY AND MICROVASCULAR ISCHEMIA. NO ACUTE PROCESS. EVIDENCE OF ACUTE STROKE: NO. Assessment & Plan - Diagnosis (1) Aspiration pneumonia Qualifiers: Is this a current diagnosis for this admission?: Yes Plan: Chest x-ray does not show an obvious infiltrate but clinically has a right- sided pneumonia. Will continue with Levaquin. Blood cultures are negative so far. (2) CAD (coronary artery disease) Qualifiers: Coronary Disease-Associated Artery/Lesion type: unspecified vessel or lesion type [place] vs. transplanted heart: unspecified whether [place] or transplanted heart Associated angina: without angina Qualified Code(s): I25.10 - Atherosclerotic heart disease of [place] coronary artery without angina pectoris Is this a current diagnosis for this admission?: Yes (3) COPD (chronic obstructive pulmonary disease) Qualifiers: COPD type: unspecified COPD Qualified Code(s): J44.9 - Chronic obstructive pulmonary disease, unspecified Is this a current diagnosis for this admission?: Yes Plan: Continue with nebulizers as needed (4) Dementia Qualifiers: Dementia type: unspecified type Is this a current diagnosis for this admission?: Yes (5) Hyperlipidemia Is this a current diagnosis for this admission?: Yes (6) Seizure Is this a current diagnosis for this admission?: Yes Plan: Continue with Keppra and valproic acid. Will add on Vimpat. (7) Do not resuscitate Is this a current diagnosis for this admission?: Yes (8) Atrial fibrillation Is this a current diagnosis for this admission?: Yes Plan: Patient's rate has varied from 50-150. He may have a component of sick sinus syndrome. He is on diltiazem and a beta-chris. - Time Time Spent with patient: 25-34 minutes - Inpatient Certification Medical Necessity: Need Close Monitoring Due to Risk of Patient Decompensation
[2017-04-14] MEDS ORDERED: LACOSAMIDE 50 MG TABLET PO ONE (12:45)
[2017-04-14] MEDS ORDERED: LORAZEPAM INJ 2 MG/1 ML VIAL IV ONE (15:15)
[2017-04-14] MEDS: LORAZEPAM INJ 2 MG/1 ML VIAL IV SCH (20:22)
[2017-04-14] MEDS: LACOSAMIDE 50 MG TABLET PO SCH (23:15)
[2017-04-15] MEDS: DILTIAZEM HCL 30 MG TABLET PO SCH ×5 (01:00→23:43)
[2017-04-15] MEDS: IPRATROPIUM/ALBUTEROL 0.5-2.5 MG/3 ML AMPUL NEB SCH ×4 (02:36→20:11)
[2017-04-15] MEDS: LORAZEPAM INJ 2 MG/1 ML VIAL IV SCH ×4 (03:05→21:24)
[2017-04-15] MEDS: LATANOPROST 0.005% OPH SOLN 2.5 ML OU SCH ×2 (03:06→21:39)
[2017-04-15 05:48] LABS: ABSOLUTE EOSINOPHILS # (AUTO) 0.1 10^3/uL (0.0-0.6); ABSOLUTE LYMPHOCYTES (AUTO) 1.2 10^3/uL (0.5-4.7); ABSOLUTE MONOCYTES (AUTO) 0.4 10^3/uL (0.1-1.4); ABSOLUTE NEUT (AUTO) 2.7 10^3/uL (1.7-8.2); EOSINOPHILS % (AUTO) 2.3 % (0-6); HEMATOCRIT 40.6 % (37.9-51.0); LYMPHOCYTES % (AUTO) 27.7 % (13-45); MEAN CORPUSCULAR VOLUME 81 fl (80-97); MONOCYTES % (AUTO) 8.7 % (3-13); PLATELET COUNT 151 10^3/uL (150-450); RED CELL DISTRIBUTION WIDTH 14.7 % (11.5-14.0); SEGMENTED NEUTROPHILS % (AUTO) 60.3 % (42-78); TOTAL CELLS COUNTED % (AUTO) 100 %; WHITE BLOOD COUNT 4.5 10^3/uL (4.0-10.5)
[2017-04-15 06:21] LABS: ANION GAP 9 (5-19); BLOOD UREA NITROGEN 9 mg/dL (7-20); CALCIUM 8.9 mg/dL (8.4-10.2); CARBON DIOXIDE 24 mmol/L (22-30); CHLORIDE 111 mmol/L (98-107); GLUCOSE 68 mg/dL (75-110); POTASSIUM 3.1 mmol/L (3.6-5.0)
[2017-04-15] MEDS: POTASSI CL 20 MEQ/50 ML RIDER 20 MEQ/50 ML RTUPB IV SCH ×2 (09:38→11:34)
[2017-04-15] MEDS: LEVOFLOXACIN 750 MG/D5W RTU 750 MG/150 ML RTUPB IV SCH (09:40)
[2017-04-15] MEDS: LEVETIRACETAM 500 MG/NACL-ISO 500 MG/100 ML RTUPB IV SCH (09:40)
[2017-04-15] MEDS: BUDESONIDE/FORMOTEROL 160-4.5 MCG 60 PUFF/6 GM MDI IH SCH ×2 (09:41→21:39)
[2017-04-15] MEDS: LISINOPRIL 10 MG TABLET PO SCH (09:42)
[2017-04-15] MEDS: FINASTERIDE 5 MG TABLET PO SCH (09:42)
[2017-04-15] MEDS: TAMSULOSIN HCL 0.4 MG CAP.SR.24H PO SCH (09:42)
[2017-04-15] MEDS: METOPROLOL TARTRATE 50 MG TABLET PO SCH (09:43)
[2017-04-15] MEDS: LORATADINE 10 MG TABLET PO SCH (09:43)
[2017-04-15] MEDS: DIVALPROEX SODIUM 125 MG CAP.SPRINK PO SCH ×2 (09:43→21:39)
[2017-04-15] MEDS: LACOSAMIDE 50 MG TABLET PO SCH ×2 (09:43→21:39)
[2017-04-15] MEDS: BUPROPION HCL 75 MG TABLET PO SCH ×2 (09:43→21:39)
[2017-04-15] MEDS: QUETIAPINE FUMARATE 25 MG TABLET PO SCH ×2 (09:44→21:39)
[2017-04-15] MEDS: ENOXAPARIN SODIUM INJ 40 MG/0.4 ML DISP.SYRIN SUBCUT SCH (09:44)
[2017-04-15] MEDS: DOCUSATE SODIUM 100 MG CAPSULE PO SCH ×2 (09:45→17:30)
[2017-04-15] MEDS: NORMAL SALINE 1000 ML 1,000 ML IV PRN ×2 (09:47→23:44)
--- NOTE | 2017-04-15 10:34 | PDOC PROGRESS REPORT ---
Subjective Progress Note for:: 04/15/17 Subjective:: Patient is more alert today. Denies any complaints. Reason For Visit: PNEUMONIA Physical Exam Vital Signs: Temp Pulse Resp BP Pulse Ox 97.6 F 95 18 185/111 H 99 04/15/17 07:24 04/15/17 07:55 04/15/17 07:55 04/15/17 07:24 04/15/17 07:55 Intake & Output 04/14/17 04/15/17 04/16/17 06:59 06:59 06:59 Intake Total 2861 3343 Balance 2861 3343 Weight 67.7 kg 69.1 kg General appearance: PRESENT: no acute distress Eye exam: PRESENT: conjunctiva pink. ABSENT: scleral icterus Mouth exam: PRESENT: moist, tongue midline Neck exam: ABSENT: JVD Respiratory exam: PRESENT: clear to auscultation karine. ABSENT: rales, rhonchi, wheezes Cardiovascular exam: PRESENT: RRR. ABSENT: diastolic murmur, rubs, systolic murmur GI/Abdominal exam: PRESENT: normal bowel sounds, soft. ABSENT: distended, guarding, mass, organolmegaly, rebound, tenderness Extremities exam: ABSENT: calf tenderness, clubbing, pedal edema Neurological exam: PRESENT: awake, oriented to person. ABSENT: oriented to place, oriented to time, oriented to situation Psychiatric exam: PRESENT: flat affect Skin exam: PRESENT: dry, intact, warm. ABSENT: cyanosis, rash Results Laboratory Results: 04/15/17 05:16 04/15/17 05:16 04/15/17 04/15/17 05:16 05:16 WBC 4.5 RBC 5.00 Hgb 13.0 L Hct 40.6 MCV 81 MCH 26.0 L MCHC 32.0 RDW 14.7 H Plt Count 151 Seg Neutrophils % 60.3 Lymphocytes % 27.7 Monocytes % 8.7 Eosinophils % 2.3 Basophils % 1.0 Absolute Neutrophils 2.7 Absolute Lymphocytes 1.2 Absolute Monocytes 0.4 Absolute Eosinophils 0.1 Absolute Basophils 0.0 Sodium 144.0 Potassium 3.1 L Chloride 111 H Carbon Dioxide 24 Anion Gap 9 BUN 9 Creatinine 0.86 Est GFR ( Amer) > 60 Est GFR (Non-Af Amer) > 60 Glucose 68 L Calcium 8.9 Impressions: Chest X-Ray 04/10/17 08:18 IMPRESSION: MILD ELEVATION OF THE LEFT HEMIDIAPHRAGM. POSSIBLE PATCHY CONSOLIDATION IN THE RETROCARDIAC LEFT LUNG BASE, DIFFICULT TO VISUALIZE. RIGHT LUNG CLEAR. Head CT 04/10/17 08:25 IMPRESSION: CHRONIC CHANGES OF ATROPHY AND MICROVASCULAR ISCHEMIA. NO ACUTE PROCESS. EVIDENCE OF ACUTE STROKE: NO. Assessment & Plan - Diagnosis (1) Aspiration pneumonia Qualifiers: Is this a current diagnosis for this admission?: Yes Plan: Chest x-ray does not show an obvious infiltrate but clinically has a right- sided pneumonia. Will continue with Levaquin. Blood cultures are negative so far. (2) CAD (coronary artery disease) Qualifiers: Coronary Disease-Associated Artery/Lesion type: unspecified vessel or lesion type [place] vs. transplanted heart: unspecified whether [place] or transplanted heart Associated angina: without angina Qualified Code(s): I25.10 - Atherosclerotic heart disease of [place] coronary artery without angina pectoris Is this a current diagnosis for this admission?: Yes (3) COPD (chronic obstructive pulmonary disease) Qualifiers: COPD type: unspecified COPD Qualified Code(s): J44.9 - Chronic obstructive pulmonary disease, unspecified Is this a current diagnosis for this admission?: Yes Plan: Continue with nebulizers as needed (4) Dementia Qualifiers: Dementia type: unspecified type Is this a current diagnosis for this admission?: Yes (5) Hyperlipidemia Is this a current diagnosis for this admission?: Yes (6) Seizure Is this a current diagnosis for this admission?: Yes Plan: Continue with Keppra, Vimpat and valproic acid (7) Do not resuscitate Is this a current diagnosis for this admission?: Yes (8) Atrial fibrillation Is this a current diagnosis for this admission?: Yes Plan: Patient's rate has varied. He may have a component of sick sinus syndrome. He is on diltiazem and a beta-chris. (9) Hypokalemia Is this a current diagnosis for this admission?: Yes Plan: We will replace and continue to monitor. - Time Time Spent with patient: 25-34 minutes - Inpatient Certification Medical Necessity: Need Close Monitoring Due to Risk of Patient Decompensation
[2017-04-15] MEDS: HYDRALAZINE HCL INJ/PF 20 MG/1 ML SDV IV PRN (15:57)
[2017-04-15] MEDS: LEVETIRACETAM 500 MG TABLET PO SCH (21:39)
[2017-04-16] MEDS: IPRATROPIUM/ALBUTEROL 0.5-2.5 MG/3 ML AMPUL NEB SCH ×4 (01:55→21:14)
[2017-04-16] MEDS: LORAZEPAM INJ 2 MG/1 ML VIAL IV SCH ×4 (03:29→21:38)
[2017-04-16] MEDS: HYDRALAZINE HCL INJ/PF 20 MG/1 ML SDV IV PRN (04:26)
[2017-04-16] MEDS: DILTIAZEM HCL 30 MG TABLET PO SCH ×3 (06:11→17:32)
[2017-04-16 06:27] LABS: ABSOLUTE BASOPHILS # (AUTO) 0.1 10^3/uL (0.0-0.2); ABSOLUTE EOSINOPHILS # (AUTO) 0.1 10^3/uL (0.0-0.6); ABSOLUTE MONOCYTES (AUTO) 0.3 10^3/uL (0.1-1.4); ABSOLUTE NEUT (AUTO) 4.2 10^3/uL (1.7-8.2); BASOPHILS % (AUTO) 1.1 % (0-2); EOSINOPHILS % (AUTO) 1.2 % (0-6); HEMOGLOBIN 12.9 g/dL (13.5-17.0); LYMPHOCYTES % (AUTO) 17.4 % (13-45); MEAN CORPUSCULAR HEMOGLOBIN 26.2 pg (27.0-33.4); MEAN CORPUSCULAR HGB CONC 32.1 g/dL (32.0-36.0); MEAN CORPUSCULAR VOLUME 81 fl (80-97); PLATELET COUNT 185 10^3/uL (150-450); RED BLOOD COUNT 4.91 10^6/uL (4.35-5.55); RED CELL DISTRIBUTION WIDTH 14.8 % (11.5-14.0); SEGMENTED NEUTROPHILS % (AUTO) 74.3 % (42-78); TOTAL CELLS COUNTED % (AUTO) 100 %; WHITE BLOOD COUNT 5.6 10^3/uL (4.0-10.5)
[2017-04-16 06:51] LABS: ANION GAP 11 (5-19); BLOOD UREA NITROGEN 9 mg/dL (7-20); CALCIUM 8.7 mg/dL (8.4-10.2); CARBON DIOXIDE 20 mmol/L (22-30); CHLORIDE 112 mmol/L (98-107); GLUCOSE 66 mg/dL (75-110); POTASSIUM 3.5 mmol/L (3.6-5.0); SODIUM 142.6 mmol/L (137-145)
[2017-04-16] MEDS: METOPROLOL TARTRATE 50 MG TABLET PO SCH (10:51)
[2017-04-16] MEDS: QUETIAPINE FUMARATE 25 MG TABLET PO SCH ×2 (10:52→21:37)
[2017-04-16] MEDS: DIVALPROEX SODIUM 125 MG CAP.SPRINK PO SCH ×2 (10:52→21:36)
[2017-04-16] MEDS: LACOSAMIDE 50 MG TABLET PO SCH ×2 (10:52→21:36)
[2017-04-16] MEDS: LISINOPRIL 10 MG TABLET PO SCH (10:53)
[2017-04-16] MEDS: FINASTERIDE 5 MG TABLET PO SCH (10:53)
[2017-04-16] MEDS: LEVETIRACETAM 500 MG TABLET PO SCH ×2 (10:53→21:36)
[2017-04-16] MEDS: LORATADINE 10 MG TABLET PO SCH (10:53)
[2017-04-16] MEDS: BUPROPION HCL 75 MG TABLET PO SCH ×2 (10:53→21:35)
[2017-04-16] MEDS: BUDESONIDE/FORMOTEROL 160-4.5 MCG 60 PUFF/6 GM MDI IH SCH ×2 (10:54→21:46)
[2017-04-16] MEDS: TAMSULOSIN HCL 0.4 MG CAP.SR.24H PO SCH (10:54)
[2017-04-16] MEDS: LEVOFLOXACIN 750 MG/D5W RTU 750 MG/150 ML RTUPB IV SCH (10:56)
[2017-04-16] MEDS: ENOXAPARIN SODIUM INJ 40 MG/0.4 ML DISP.SYRIN SUBCUT SCH (10:57)
[2017-04-16] MEDS: DOCUSATE SODIUM 100 MG CAPSULE PO SCH ×2 (11:00→17:32)
[2017-04-16] MEDS: NORMAL SALINE 1000 ML 1,000 ML IV PRN (14:43)
[2017-04-16] MEDS ORDERED: POTASSIUM CHLORIDE 10 MEQ TABLET.SA PO ONE (16:16)
--- NOTE | 2017-04-16 16:17 | PDOC PROGRESS REPORT ---
Subjective Progress Note for:: 04/16/17 Subjective:: 76-year-old gentleman who has dementia as well as seizure disorder [facility] with [facility] that the nurse and was concerned might have been related to seizures. Patient however was found to be febrile and was thought that this represented [place]. The patient was found to have a right- sided pneumonia and was started on Levaquin. The patient's pneumonia has improved and can be switched tomorrow to oral Levaquin. The patient has had a history of seizure and has been on valproic acid and Keppra. While hospitalized he had problems with frequent seizures and Vimpat was added to his therapy. Since then the patient is doing much better with fewer seizures. The patient also has had problems with atrial fibrillation with rapid ventricular rate. He was on IV diltiazem at one time but has been converted over to p.o. diltiazem. The patient does have significant dementia baseline and today is at his usual baseline self. He most likely can go home tomorrow unless he has a fever today or tomorrow. Reason For Visit: PNEUMONIA Physical Exam Vital Signs: Temp Pulse Resp BP Pulse Ox 97.5 F 53 L 18 119/93 H 100 04/16/17 11:37 04/16/17 14:00 04/16/17 13:49 04/16/17 11:37 04/16/17 11:37 Intake & Output 04/15/17 04/16/17 04/17/17 06:59 06:59 06:59 Intake Total 3343 875 Balance 3343 875 Weight 69.1 kg 67.9 kg General appearance: PRESENT: no acute distress Eye exam: PRESENT: conjunctiva pink. ABSENT: scleral icterus Mouth exam: PRESENT: moist, tongue midline Neck exam: ABSENT: JVD Respiratory exam: PRESENT: clear to auscultation karine. ABSENT: rales, rhonchi, wheezes Cardiovascular exam: PRESENT: irregular rhythm. ABSENT: diastolic murmur, rubs , systolic murmur GI/Abdominal exam: PRESENT: normal bowel sounds, soft. ABSENT: distended, guarding, mass, organolmegaly, rebound, tenderness Extremities exam: ABSENT: calf tenderness, clubbing, pedal edema Neurological exam: PRESENT: awake, oriented to person, oriented to place. ABSENT: oriented to time, oriented to situation Psychiatric exam: PRESENT: flat affect Skin exam: PRESENT: dry, intact, warm. ABSENT: cyanosis, rash Results Laboratory Results: 04/16/17 05:53 04/16/17 05:53 04/16/17 04/16/17 05:53 05:53 WBC 5.6 RBC 4.91 Hgb 12.9 L Hct 40.0 MCV 81 MCH 26.2 L MCHC 32.1 RDW 14.8 H Plt Count 185 Seg Neutrophils % 74.3 Lymphocytes % 17.4 Monocytes % 6.0 Eosinophils % 1.2 Basophils % 1.1 Absolute Neutrophils 4.2 Absolute Lymphocytes 1.0 Absolute Monocytes 0.3 Absolute Eosinophils 0.1 Absolute Basophils 0.1 Sodium 142.6 Potassium 3.5 L Chloride 112 H Carbon Dioxide 20 L Anion Gap 11 BUN 9 Creatinine 0.83 Est GFR ( Amer) > 60 Est GFR (Non-Af Amer) > 60 Glucose 66 L Calcium 8.7 Impressions: Chest X-Ray 04/10/17 08:18 IMPRESSION: MILD ELEVATION OF THE LEFT HEMIDIAPHRAGM. POSSIBLE PATCHY CONSOLIDATION IN THE RETROCARDIAC LEFT LUNG BASE, DIFFICULT TO VISUALIZE. RIGHT LUNG CLEAR. Head CT 04/10/17 08:25 IMPRESSION: CHRONIC CHANGES OF ATROPHY AND MICROVASCULAR ISCHEMIA. NO ACUTE PROCESS. EVIDENCE OF ACUTE STROKE: NO. Assessment & Plan - Diagnosis (1) Aspiration pneumonia Qualifiers: Is this a current diagnosis for this admission?: Yes Plan: Chest x-ray does not show an obvious infiltrate but clinically has a right- sided pneumonia. Will continue with Levaquin. Blood cultures are negative so far. Can be switched to oral antibiotics and discharged back to [facility] tomorrow if his cultures remain negative. (2) CAD (coronary artery disease) Qualifiers: Coronary Disease-Associated Artery/Lesion type: unspecified vessel or lesion type [place] vs. transplanted heart: unspecified whether [place] or transplanted heart Associated angina: without angina Qualified Code(s): I25.10 - Atherosclerotic heart disease of [place] coronary artery without angina pectoris Is this a current diagnosis for this admission?: Yes (3) COPD (chronic obstructive pulmonary disease) Qualifiers: COPD type: unspecified COPD Qualified Code(s): J44.9 - Chronic obstructive pulmonary disease, unspecified Is this a current diagnosis for this admission?: Yes Plan: Continue with nebulizers as needed (4) Dementia Qualifiers: Dementia type: unspecified type Is this a current diagnosis for this admission?: Yes (5) Hyperlipidemia Is this a current diagnosis for this admission?: Yes (6) Seizure Is this a current diagnosis for this admission?: Yes Plan: Continue with Keppra, Vimpat and valproic acid (7) Do not resuscitate Is this a current diagnosis for this admission?: Yes Plan: Patient has had a long-standing DNR. (8) Atrial fibrillation Is this a current diagnosis for this admission?: Yes Plan: Patient's rate has varied. He may have a component of sick sinus syndrome. He is on diltiazem and a beta-chris. He currently is on short acting diltiazem and could be switched over to long-acting diltiazem prior to [facility] to the [facility]. (9) Hypokalemia Is this a current diagnosis for this admission?: Yes
[2017-04-16 16:58] LABS: ARTERIAL BLOOD BASE EXCESS -1.8 mmol/L; ARTERIAL BLOOD H2CO3 1.16 mmol/L (1.05-1.35); ARTERIAL BLOOD HCO3 22.8 mmol/L (20-26); ARTERIAL BLOOD O2 SATURATION 94.5 % (94-98); ARTERIAL BLOOD PCO2 38.4 mmHg (35-45); ARTERIAL BLOOD PH 7.39 (7.35-7.45); ARTERIAL BLOOD PO2 72.2 mmHg (80-100)
[2017-04-16 16:59] LABS: ARTERIAL BLOOD FIO2 4L
[2017-04-16] MEDS ORDERED: POTASSIUM CHLORIDE 20 MEQ/15 ML UDCUP PO ONE (18:00)
[2017-04-16] MEDS: LATANOPROST 0.005% OPH SOLN 2.5 ML OU SCH (21:47)
[2017-04-17] MEDS: DILTIAZEM HCL 30 MG TABLET PO SCH ×4 (01:12→18:04)
[2017-04-17] MEDS: IPRATROPIUM/ALBUTEROL 0.5-2.5 MG/3 ML AMPUL NEB SCH ×4 (03:03→20:42)
[2017-04-17] MEDS: LORAZEPAM INJ 2 MG/1 ML VIAL IV SCH ×2 (03:47→09:23)
[2017-04-17 06:04] LABS: ABSOLUTE EOSINOPHILS # (AUTO) 0.1 10^3/uL (0.0-0.6); ABSOLUTE LYMPHOCYTES (AUTO) 0.9 10^3/uL (0.5-4.7); ABSOLUTE MONOCYTES (AUTO) 0.4 10^3/uL (0.1-1.4); ABSOLUTE NEUT (AUTO) 3.6 10^3/uL (1.7-8.2); BASOPHILS % (AUTO) 0.9 % (0-2); EOSINOPHILS % (AUTO) 2.3 % (0-6); HEMATOCRIT 38.1 % (37.9-51.0); HEMOGLOBIN 12.3 g/dL (13.5-17.0); LYMPHOCYTES % (AUTO) 18.6 % (13-45); MEAN CORPUSCULAR HGB CONC 32.2 g/dL (32.0-36.0); MEAN CORPUSCULAR VOLUME 81 fl (80-97); MONOCYTES % (AUTO) 7.2 % (3-13); PLATELET COUNT 165 10^3/uL (150-450); RED BLOOD COUNT 4.72 10^6/uL (4.35-5.55); RED CELL DISTRIBUTION WIDTH 14.7 % (11.5-14.0); TOTAL CELLS COUNTED % (AUTO) 100 %
[2017-04-17 06:22] LABS: ANION GAP 10 (5-19); BLOOD UREA NITROGEN 10 mg/dL (7-20); CALCIUM 8.5 mg/dL (8.4-10.2); CARBON DIOXIDE 22 mmol/L (22-30); CHLORIDE 113 mmol/L (98-107); GLUCOSE 76 mg/dL (75-110); POTASSIUM 3.6 mmol/L (3.6-5.0); SODIUM 144.5 mmol/L (137-145)
[2017-04-17] MEDS: LISINOPRIL 10 MG TABLET PO SCH (09:23)
[2017-04-17] MEDS: LACOSAMIDE 50 MG TABLET PO SCH ×2 (09:25→21:15)
[2017-04-17] MEDS: TAMSULOSIN HCL 0.4 MG CAP.SR.24H PO SCH (09:25)
[2017-04-17] MEDS: LORATADINE 10 MG TABLET PO SCH (09:25)
[2017-04-17] MEDS: DOCUSATE SODIUM 100 MG CAPSULE PO SCH ×2 (09:26→18:04)
[2017-04-17] MEDS: METOPROLOL TARTRATE 50 MG TABLET PO SCH (09:26)
[2017-04-17] MEDS: DIVALPROEX SODIUM 125 MG CAP.SPRINK PO SCH ×2 (09:26→21:14)
[2017-04-17] MEDS: LEVETIRACETAM 500 MG TABLET PO SCH ×2 (09:26→21:14)
[2017-04-17] MEDS: BUPROPION HCL 75 MG TABLET PO SCH ×2 (09:26→21:15)
[2017-04-17] MEDS: FINASTERIDE 5 MG TABLET PO SCH (09:26)
[2017-04-17] MEDS: QUETIAPINE FUMARATE 25 MG TABLET PO SCH ×2 (09:27→21:15)
[2017-04-17] MEDS: LEVOFLOXACIN 750 MG/D5W RTU 750 MG/150 ML RTUPB IV SCH (09:27)
[2017-04-17] MEDS: ENOXAPARIN SODIUM INJ 40 MG/0.4 ML DISP.SYRIN SUBCUT SCH (09:28)
[2017-04-17] MEDS: BUDESONIDE/FORMOTEROL 160-4.5 MCG 60 PUFF/6 GM MDI IH SCH ×2 (09:33→21:17)
[2017-04-17] MEDS: METOPROLOL TARTRATE PF/INJ 5 MG/5 ML SDV IV PRN ×2 (10:03→21:11)
--- NOTE | 2017-04-17 17:30 | PDOC PROGRESS REPORT ---
Subjective Progress Note for:: 04/17/17 Subjective:: No overnight issues. Somnolent this AM. No fevers, chills per RN report. Tolerating POs and taking meds Reason For Visit: PNEUMONIA Physical Exam Vital Signs: Temp Pulse Resp BP Pulse Ox 98.4 F 115 H 16 164/99 H 96 04/17/17 15:29 04/17/17 15:29 04/17/17 15:29 04/17/17 15:29 04/17/17 15:29 Intake & Output 04/16/17 04/17/17 04/18/17 06:59 06:59 06:59 Intake Total 875 1872 0 Balance 875 1872 0 Weight 67.9 kg 69.7 kg General appearance: PRESENT: no acute distress, other - Resting in bed Head exam: PRESENT: atraumatic, normocephalic Mouth exam: PRESENT: moist Respiratory exam: PRESENT: crackles, prolonged expiratory phas, unlabored Cardiovascular exam: PRESENT: RRR GI/Abdominal exam: PRESENT: soft. ABSENT: distended, rigid Neurological exam: PRESENT: alert, altered, oriented to person, oriented to place, oriented to time, CN II-XII grossly intact Skin exam: PRESENT: warm Results Laboratory Results: 04/17/17 05:10 04/17/17 05:10 04/17/17 04/17/17 05:10 05:10 WBC 5.0 RBC 4.72 Hgb 12.3 L Hct 38.1 MCV 81 MCH 26.0 L MCHC 32.2 RDW 14.7 H Plt Count 165 Seg Neutrophils % 71.0 Lymphocytes % 18.6 Monocytes % 7.2 Eosinophils % 2.3 Basophils % 0.9 Absolute Neutrophils 3.6 Absolute Lymphocytes 0.9 Absolute Monocytes 0.4 Absolute Eosinophils 0.1 Absolute Basophils 0.0 Sodium 144.5 Potassium 3.6 Chloride 113 H Carbon Dioxide 22 Anion Gap 10 BUN 10 Creatinine 0.95 Est GFR ( Amer) > 60 Est GFR (Non-Af Amer) > 60 Glucose 76 Calcium 8.5 Impressions: Chest X-Ray 04/10/17 08:18 IMPRESSION: MILD ELEVATION OF THE LEFT HEMIDIAPHRAGM. POSSIBLE PATCHY CONSOLIDATION IN THE RETROCARDIAC LEFT LUNG BASE, DIFFICULT TO VISUALIZE. RIGHT LUNG CLEAR. Head CT 04/10/17 08:25 IMPRESSION: CHRONIC CHANGES OF ATROPHY AND MICROVASCULAR ISCHEMIA. NO ACUTE PROCESS. EVIDENCE OF ACUTE STROKE: NO. Assessment & Plan - Diagnosis (1) CAD (coronary artery disease) Qualifiers: Coronary Disease-Associated Artery/Lesion type: unspecified vessel or lesion type [place] vs. transplanted heart: unspecified whether [place] or transplanted heart Associated angina: without angina Qualified Code(s): I25.10 - Atherosclerotic heart disease of [place] coronary artery without angina pectoris Is this a current diagnosis for this admission?: Yes Plan: Unchanged, continue current regimen (2) COPD (chronic obstructive pulmonary disease) Qualifiers: COPD type: unspecified COPD Qualified Code(s): J44.9 - Chronic obstructive pulmonary disease, unspecified Is this a current diagnosis for this admission?: Yes Plan: Stable (3) Dementia Qualifiers: Dementia type: unspecified type Is this a current diagnosis for this admission?: Yes Plan: Stable, no change (4) Do not resuscitate Is this a current diagnosis for this admission?: Yes (5) Aspiration pneumonia Qualifiers: Is this a current diagnosis for this admission?: Yes Plan: CXR withoutobvious infiltrate but clinically has a right-sided pneumonia. Blood cultures are negative to date. - Continue Levaquin, switched to oral antibiotics - Discharge back to the [facility] tomorrow if his cultures remain negative.
[2017-04-17] MEDS: HYDRALAZINE HCL INJ/PF 20 MG/1 ML SDV IV PRN (20:28)
[2017-04-17] MEDS: CLONIDINE 0.2 MG/24 HR PATCH.TDWK TD SCH (21:16)
[2017-04-17] MEDS: LATANOPROST 0.005% OPH SOLN 2.5 ML OU SCH (21:17)
[2017-04-18] MEDS: DILTIAZEM HCL 30 MG TABLET PO SCH ×5 (00:06→23:59)
[2017-04-18] MEDS: IPRATROPIUM/ALBUTEROL 0.5-2.5 MG/3 ML AMPUL NEB SCH ×4 (02:20→20:39)
[2017-04-18] MEDS: ENOXAPARIN SODIUM INJ 40 MG/0.4 ML DISP.SYRIN SUBCUT SCH (09:43)
[2017-04-18] MEDS: BUDESONIDE/FORMOTEROL 160-4.5 MCG 60 PUFF/6 GM MDI IH SCH ×2 (09:44→22:08)
[2017-04-18] MEDS: METOPROLOL TARTRATE 50 MG TABLET PO SCH (09:45)
[2017-04-18] MEDS: FINASTERIDE 5 MG TABLET PO SCH (09:45)
[2017-04-18] MEDS: LEVOFLOXACIN 750 MG TABLET PO SCH (09:45)
[2017-04-18] MEDS: BUPROPION HCL 75 MG TABLET PO SCH ×2 (09:45→21:51)
[2017-04-18] MEDS: DOCUSATE SODIUM 100 MG CAPSULE PO SCH ×2 (09:46→16:58)
[2017-04-18] MEDS: LEVETIRACETAM 500 MG TABLET PO SCH ×2 (09:46→21:50)
[2017-04-18] MEDS: DIVALPROEX SODIUM 125 MG CAP.SPRINK PO SCH ×2 (09:46→21:51)
[2017-04-18] MEDS: LORATADINE 10 MG TABLET PO SCH (09:46)
[2017-04-18] MEDS: QUETIAPINE FUMARATE 25 MG TABLET PO SCH ×2 (09:46→21:50)
[2017-04-18] MEDS: LACOSAMIDE 50 MG TABLET PO SCH ×2 (09:47→21:50)
[2017-04-18] MEDS: TAMSULOSIN HCL 0.4 MG CAP.SR.24H PO SCH (09:47)
[2017-04-18] MEDS: LISINOPRIL 10 MG TABLET PO SCH (09:47)
--- NOTE | 2017-04-18 15:07 | PDOC PROGRESS REPORT ---
Subjective Progress Note for:: 04/18/17 Subjective:: No overnight issues. Somnolent this AM. No fevers, chills per RN report. Tolerating POs and taking meds Reason For Visit: PNEUMONIA Physical Exam Vital Signs: Temp Pulse Resp BP Pulse Ox 97.9 F 81 18 110/72 97 04/18/17 11:42 04/18/17 14:23 04/18/17 14:23 04/18/17 11:42 04/18/17 14:23 Intake & Output 04/17/17 04/18/17 04/19/17 06:59 06:59 06:59 Intake Total 1872 146 Balance 1872 146 Weight 69.7 kg 68.1 kg General appearance: PRESENT: no acute distress, other - Sleepy but arousable Head exam: PRESENT: atraumatic, normocephalic Mouth exam: PRESENT: moist Teeth exam: PRESENT: poor dentation Respiratory exam: PRESENT: clear to auscultation karine, unlabored Cardiovascular exam: PRESENT: RRR GI/Abdominal exam: PRESENT: soft. ABSENT: tenderness Neurological exam: PRESENT: other - Sleeping but arousable, answering some questions appropriately, detailed neuro exam not performed as pt is not cooperative Results Laboratory Results: 04/17/17 05:10 04/17/17 05:10 04/17/17 05:10 04/17/17 05:10 Impressions: Chest X-Ray 04/10/17 08:18 IMPRESSION: MILD ELEVATION OF THE LEFT HEMIDIAPHRAGM. POSSIBLE PATCHY CONSOLIDATION IN THE RETROCARDIAC LEFT LUNG BASE, DIFFICULT TO VISUALIZE. RIGHT LUNG CLEAR. Head CT 04/10/17 08:25 IMPRESSION: CHRONIC CHANGES OF ATROPHY AND MICROVASCULAR ISCHEMIA. NO ACUTE PROCESS. EVIDENCE OF ACUTE STROKE: NO. Assessment & Plan - Diagnosis (1) Aspiration pneumonia Qualifiers: Is this a current diagnosis for this admission?: Yes Plan: Improving clinically. Transitioned from IV to PO antibiotics (Levoquin). Plan to complete 7 day course. (2) CAD (coronary artery disease) Qualifiers: Coronary Disease-Associated Artery/Lesion type: unspecified vessel or lesion type [place] vs. transplanted heart: unspecified whether [place] or transplanted heart Associated angina: without angina Qualified Code(s): I25.10 - Atherosclerotic heart disease of [place] coronary artery without angina pectoris Is this a current diagnosis for this admission?: Yes Plan: Unchanged, continue current regimen (3) COPD (chronic obstructive pulmonary disease) Qualifiers: COPD type: unspecified COPD Qualified Code(s): J44.9 - Chronic obstructive pulmonary disease, unspecified Is this a current diagnosis for this admission?: Yes Plan: Stable (4) Dementia Qualifiers: Dementia type: unspecified type Is this a current diagnosis for this admission?: Yes Plan: Discussed with today. She feels that mental status is worse currently than baseline. LIkely multifactorial given history of dementia, hospitalization, and infection. Continue to monitor. (5) Do not resuscitate Is this a current diagnosis for this admission?: Yes - Time Time Spent with patient: Less than 15 minutes Within: within 24 hours - Resident of [place]. If mental status improves on 04/19, will discharge back to [facility].
[2017-04-18] MEDS: LATANOPROST 0.005% OPH SOLN 2.5 ML OU SCH (22:08)
[2017-04-19] MEDS: IPRATROPIUM/ALBUTEROL 0.5-2.5 MG/3 ML AMPUL NEB SCH ×3 (02:12→13:29)
[2017-04-19] MEDS: DILTIAZEM HCL 30 MG TABLET PO SCH ×3 (05:41→17:03)
[2017-04-19 09:29] LABS: HEMATOCRIT 37.6 % (37.9-51.0); HEMOGLOBIN 12.4 g/dL (13.5-17.0); MEAN CORPUSCULAR HEMOGLOBIN 26.5 pg (27.0-33.4); MEAN CORPUSCULAR HGB CONC 32.9 g/dL (32.0-36.0); MEAN CORPUSCULAR VOLUME 81 fl (80-97); PLATELET COUNT 170 10^3/uL (150-450); RED BLOOD COUNT 4.68 10^6/uL (4.35-5.55); RED CELL DISTRIBUTION WIDTH 14.7 % (11.5-14.0)
[2017-04-19 09:49] LABS: ANION GAP 9 (5-19); BLOOD UREA NITROGEN 11 mg/dL (7-20); CALCIUM 9.1 mg/dL (8.4-10.2); CARBON DIOXIDE 27 mmol/L (22-30); CHLORIDE 109 mmol/L (98-107); GLUCOSE 92 mg/dL (75-110); POTASSIUM 3.7 mmol/L (3.6-5.0); SODIUM 145.4 mmol/L (137-145)
[2017-04-19] MEDS: BUDESONIDE/FORMOTEROL 160-4.5 MCG 60 PUFF/6 GM MDI IH SCH (10:27)
[2017-04-19] MEDS: METOPROLOL TARTRATE 50 MG TABLET PO SCH (10:28)
[2017-04-19] MEDS: LEVOFLOXACIN 750 MG TABLET PO SCH (10:28)
[2017-04-19] MEDS: LISINOPRIL 10 MG TABLET PO SCH (10:28)
[2017-04-19] MEDS: LEVETIRACETAM 500 MG TABLET PO SCH (10:28)
[2017-04-19] MEDS: LACOSAMIDE 50 MG TABLET PO SCH (10:28)
[2017-04-19] MEDS: LORATADINE 10 MG TABLET PO SCH (10:28)
[2017-04-19] MEDS: DOCUSATE SODIUM 100 MG CAPSULE PO SCH ×2 (10:29→17:03)
[2017-04-19] MEDS: FINASTERIDE 5 MG TABLET PO SCH (10:29)
[2017-04-19] MEDS: BUPROPION HCL 75 MG TABLET PO SCH (10:29)
[2017-04-19] MEDS: QUETIAPINE FUMARATE 25 MG TABLET PO SCH (10:29)
[2017-04-19] MEDS: DIVALPROEX SODIUM 125 MG CAP.SPRINK PO SCH (10:29)
[2017-04-19] MEDS: ENOXAPARIN SODIUM INJ 40 MG/0.4 ML DISP.SYRIN SUBCUT SCH (10:30)
[2017-04-19] MEDS: TAMSULOSIN HCL 0.4 MG CAP.SR.24H PO SCH (10:32)
--- NOTE | 2017-04-19 13:19 | PDOC TRANSFER SUMMARY ---
General - Admit/Disc Date/PCP Admission Date/Primary Care Provider: 04/10/17 12:10 THEA REYES Discharge Date: 04/19/17 - Discharge Diagnosis (1) Aspiration pneumonia Is this a current diagnosis for this admission?: Yes Summary: Admission CXR with retrocardiac consolidation in the left lung base. Initially started on IV Levoquin and transitioned to PO Levoquin. Completed 8 day course. No additional antibiotics at discharge. (2) CAD (coronary artery disease) Is this a current diagnosis for this admission?: Yes (3) Hypertension Is this a current diagnosis for this admission?: Yes Summary: : During admission changes were made to blood pressure medications - At discharge: Diltiazem 30mg PO q6 hours was added. Amlodipine was discontinued - Continue clonidine patch, lisinopril, and metoprolol - Please continue to check BP daily. If SBP>150, would call MD to adjust medications. - Hold parameters: SBP<90, HR<60, symptomatic (4) COPD (chronic obstructive pulmonary disease) Is this a current diagnosis for this admission?: Yes (5) Dementia Is this a current diagnosis for this admission?: Yes (6) Do not resuscitate Is this a current diagnosis for this admission?: Yes - Additional Information Resuscitation Status: Do Not Resuscitate Discharge Diet: Cardiac Discharge Activity: Supervised Activity, Other - Continue PT and OT at [facility] Prescriptions: Diltiazem HCl [Cardizem 30 mg Tablet] 30 mg PO Q6 30 Days #120 tablet Home Medications: Budesonide/Formoterol Fumarate [Symbicort HFA 160-4.5 mcg Inhaler 6 gm] 1 puff IH Q12 04/10/17 Bupropion HCl [Wellbutrin 75 mg Tablet] 75 mg PO Q12 04/10/17 Divalproex Sodium [Depakote Sprinkle 125 mg Capsule] 125 mg PO Q12 04/10/17 Docusate Sodium [Colace 100 mg Capsule] 100 mg PO BID 04/10/17 Finasteride [Proscar 5 mg Tablet] 5 mg PO DAILY 04/10/17 Latanoprost [Xalatan 0.005% Oph Soln 2.5 ml] 1 drop OU QHS 04/10/17 Lisinopril [Prinivil 10 mg Tablet] 10 mg PO DAILY 04/10/17 Loratadine [Claritin 10 mg Tablet] 10 mg PO DAILY 04/10/17 Metoprolol Tartrate [Lopressor 50 mg Tablet] 50 mg PO DAILY 04/10/17 Quetiapine Fumarate [Seroquel] 50 mg PO DAILY 04/10/17 Quetiapine Fumarate [Seroquel] 75 mg PO QHS 04/10/17 Tamsulosin HCl [Flomax 0.4 mg Cap.sr] 0.4 mg PO DAILY 04/10/17 Clonidine [Catapres-Tts 2 (0.2 mg/24 Hr) Transderm Ptch] 1 each TD Tu@2200 patch.tdwk 04/19/17 Diltiazem HCl [Cardizem 30 mg Tablet] 30 mg PO Q6 30 Days #120 tablet 04/19/17 Levetiracetam [Keppra 500 mg Tablet] 500 mg PO Q12 tablet 04/19/17 History of Present Illness Admission Date/PCP: 04/10/17 12:10 THEA REYES Patient complains of: Rigors and fever History of Present Illness: 76 year old male known to me from previous admissions who has a history of dementia as well as a seizure disorder who presents with shaking and the [facility] was concerned that he may be having a seizure. When he presented he was found to have a fever of 102 and it is most likely this represents rigors. He does however have a history of seizure disorder. The patient is demented and is unresponsive at this time. [facility]. The patient has clinically what appears to be right-sided pneumonia probable aspiration. Hospital Course Hospital Course: Treated for aspiration PNA. See above for details. Physical Exam Vital Signs: Temp Pulse Resp BP Pulse Ox 97.6 F 84 17 131/93 H 100 04/19/17 12:25 04/19/17 12:25 04/19/17 12:25 04/19/17 12:25 04/19/17 12:25 Intake & Output 04/18/17 04/19/17 04/20/17 06:59 06:59 06:59 Intake Total 146 606 118 Balance 146 606 118 Weight 68.1 kg 69.1 kg General appearance: PRESENT: other - Sleepy but arousable. Answering questions appropriately Head exam: PRESENT: atraumatic, normocephalic Mouth exam: PRESENT: moist Respiratory exam: PRESENT: clear to auscultation karine, unlabored Cardiovascular exam: PRESENT: RRR GI/Abdominal exam: PRESENT: soft. ABSENT: tenderness Neurological exam: PRESENT: other - Sleepy but arousable. Speech appropriate. Detailed neuro exam not performed due to patient being non-cooperative Results Laboratory Results: 04/19/17 08:53 04/19/17 08:53 04/19/17 04/19/17 08:53 08:53 WBC 6.0 RBC 4.68 Hgb 12.4 L Hct 37.6 L MCV 81 MCH 26.5 L MCHC 32.9 RDW 14.7 H Plt Count 170 Sodium 145.4 H Potassium 3.7 Chloride 109 H Carbon Dioxide 27 Anion Gap 9 BUN 11 Creatinine 0.92 Est GFR ( Amer) > 60 Est GFR (Non-Af Amer) > 60 Glucose 92 Calcium 9.1 Impressions: Chest X-Ray 04/10/17 08:18 IMPRESSION: MILD ELEVATION OF THE LEFT HEMIDIAPHRAGM. POSSIBLE PATCHY CONSOLIDATION IN THE RETROCARDIAC LEFT LUNG BASE, DIFFICULT TO VISUALIZE. RIGHT LUNG CLEAR. Head CT 04/10/17 08:25 IMPRESSION: CHRONIC CHANGES OF ATROPHY AND MICROVASCULAR ISCHEMIA. NO ACUTE PROCESS. EVIDENCE OF ACUTE STROKE: NO. Transfer Plan - Time Spent with Patient Time spent with patient: Greater than 30 Minutes
[2017-04-19 15:58] VITALS: BP 137/97
== END 2017-04-19 18:00 | DRG 179 ==
LOC: ER 08:14 → EH 12:10 → 4W 15:45 → 3S 04-11 16:17
PROVIDERS: ADMIT Internal Medicine; ATTEND Internal Medicine
DX: J69.0 Pneumonitis due to inhalation of food and vomit (principal); G40.909 Epilepsy, unspecified, not intractable, without status epilepticus; Z66 Do not resuscitate; E87.6 Hypokalemia; I48.91 Unspecified atrial fibrillation; I10 Essential (primary) hypertension; J44.9 Chronic obstructive pulmonary disease, unspecified; I25.10 Atherosclerotic heart disease of native coronary artery without angina pectoris; E78.00 Pure hypercholesterolemia, unspecified; F03.90 Unspecified dementia, unspecified severity, without behavioral disturbance, psychotic disturbance, mood disturbance, and anxiety; M62.462 Contracture of muscle, left lower leg; M62.461 Contracture of muscle, right lower leg; I69.328 Other speech and language deficits following cerebral infarction; I69.398 Other sequelae of cerebral infarction; Z79.51 Long term (current) use of inhaled steroids; Z79.899 Other long term (current) drug therapy
CPT/HCPCS: 36415; 36600; 51701; 70450; 71045; 80048; 80053; 80164; 80177; 81001; 82550; 82803; 83605; 84484; 85025; 85027; 85610; 87040; 87086; 87804; 93005; 93010; 94640; 96361; 96365; 96367; 96368; 96375; 99291; J0360; J1650; J1953; J1956; J2060; J3480; J3490; J7030; J7620

== ENCOUNTER 2017-05-11 04:22 | Emergency (ER) | payer MEDICARE, BC, MEDICAID ==
[2017-05-11] MEDS ORDERED: ASPIRIN 81 MG TABLET, CHEWABLE PO ONE (04:30)
--- NOTE | 2017-05-11 04:47 | ER Document Report ---
ED Cardiac - General Chief Complaint: Chest Pain Stated Complaint: CHEST PAIN Time Seen by Provider: 05/11/17 04:43 Mode of Arrival: Medic Information source: Patient Notes: Patient is a 76-year-old male with dementia from the [facility] who presents to the ER today because he was complaining at the [facility] of some chest pain. He denies any cough, other sick symptoms recently. They did not report any fever. Patient does not have history of heart attack or stroke according to records that were brought with him. TRAVEL OUTSIDE OF THE [place] IN LAST 30 DAYS: No - Related Data Allergies/Adverse Reactions: No Known Allergies Allergy (Verified 01/18/15 05:15) Past Medical History - General Information source: Patient - Social History Smoking Status: Unknown if Ever Smoked Family History: Reviewed & Not Pertinent - Past Medical History Cardiac Medical History: Reports: Hx Atrial Fibrillation, Hx Coronary Artery Disease, Hx Hypercholesterolemia, Hx Hypertension Pulmonary Medical History: Reports: Hx COPD Neurological Medical History: Reports: Hx Cerebrovascular Accident, Hx Seizures Renal/ Medical History: Denies: Hx Peritoneal Dialysis Psychiatric Medical History: Reports: Hx Dementia, Hx Depression Past Surgical History: Reports: Hx Abdominal Surgery, Hx Herniorrhaphy - Immunizations Hx Diphtheria, Pertussis, Tetanus Vaccination: Yes Review of Systems - Review of Systems Constitutional: No symptoms reported EENT: No symptoms reported Cardiovascular: See HPI Respiratory: No symptoms reported Gastrointestinal: No symptoms reported Genitourinary: No symptoms reported Male Genitourinary: No symptoms reported Musculoskeletal: No symptoms reported Skin: No symptoms reported Hematologic/Lymphatic: No symptoms reported Neurological/Psychological: See HPI Physical Exam - Vital signs Vitals: Temp Pulse Resp BP Pulse Ox 98.1 F 96 18 169/115 H 98 05/11/17 05:00 05/11/17 05:00 05/11/17 05:00 05/11/17 05:00 05/11/17 05:00 - Notes Notes: PHYSICAL EXAMINATION: GENERAL: Elderly and demented, in no acute distress. HEAD: Atraumatic, normocephalic. EYES: Pupils equal round and reactive to light, extraocular movements intact, sclera anicteric, conjunctiva are normal. NECK: Normal range of motion, supple without lymphadenopathy LUNGS: CTAB and equal. No wheezes rales or rhonchi. HEART: Chest nontender to palpation, regular rate and rhythm without murmurs ABDOMEN: Soft, no tenderness. No guarding, no rebound SKIN: Warm, Dry, normal turgor, no rashes or lesions noted Course - Re-evaluation Re-evalutation: 05/11/17 07:31 Lab work is unremarkable today, however chest x-ray does report a possible atelectasis versus right lower lobe pneumonia. Clinically patient is afebrile with normal vital signs, not hypoxic or tachypneic and I do not suspect a pneumonia based on what he came in for today, however I will treat him with azithromycin and sent him back to the [facility]. - Vital Signs Vital signs: Temp Pulse Resp BP Pulse Ox 98.1 F 96 18 169/115 H 98 05/11/17 05:00 05/11/17 05:00 05/11/17 05:00 05/11/17 05:00 05/11/17 05:00 - Laboratory Result Diagrams: 05/11/17 05:20 05/11/17 05:20 Laboratory results interpreted by me: 05/11/17 05/11/17 05:20 05:20 Hgb 12.7 L MCH 26.0 L RDW 15.2 H Chloride 110 H Glucose 113 H Discharge - Discharge Clinical Impression: Chest pain Qualifiers: Chest pain type: unspecified Qualified Code(s): R07.9 - Chest pain, unspecified Pneumonia Qualifiers: Pneumonia type: due to unspecified organism Laterality: right Lung location: lower lobe of lung Qualified Code(s): J18.1 - Lobar pneumonia, unspecified organism Condition: Stable Disposition: HOME, SELF-CARE Additional Instructions: Return immediately for any new or worsening symptoms. Follow up with primary care provider, call tomorrow to make followup appointment. Please give him the azithromycin as instructed. Prescriptions: Azithromycin [Zithromax 250 mg Tablet] 250 mg PO ASDIR PRN #6 tablet PRN Reason: Referrals: THEA REYES MD [Primary Care Provider] - Follow up as needed
[2017-05-11 05:34] LABS: ABSOLUTE BASOPHILS # (AUTO) 0.1 10^3/uL (0.0-0.2); ABSOLUTE LYMPHOCYTES (AUTO) 1.1 10^3/uL (0.5-4.7); ABSOLUTE MONOCYTES (AUTO) 0.3 10^3/uL (0.1-1.4); ABSOLUTE NEUT (AUTO) 3.2 10^3/uL (1.7-8.2); BASOPHILS % (AUTO) 1.1 % (0-2); HEMATOCRIT 39.5 % (37.9-51.0); HEMOGLOBIN 12.7 g/dL (13.5-17.0); LYMPHOCYTES % (AUTO) 22.8 % (13-45); MEAN CORPUSCULAR HGB CONC 32.3 g/dL (32.0-36.0); MEAN CORPUSCULAR VOLUME 81 fl (80-97); MONOCYTES % (AUTO) 6.9 % (3-13); PLATELET COUNT 210 10^3/uL (150-450); RED CELL DISTRIBUTION WIDTH 15.2 % (11.5-14.0); SEGMENTED NEUTROPHILS % (AUTO) 68.2 % (42-78); TOTAL CELLS COUNTED % (AUTO) 100 %; WHITE BLOOD COUNT 4.8 10^3/uL (4.0-10.5)
[2017-05-11 06:03] LABS: ALANINE AMINOTRANSFERASE 30 U/L (21-72); ALBUMIN 3.5 g/dL (3.5-5.0); ALKALINE PHOSPHATASE 107 U/L (38-126); ANION GAP 10 (5-19); ASPARTATE AMINO TRANSFERASE 22 U/L (17-59); BILIRUBIN,DIRECT 0.1 mg/dL (0.0-0.4); BILIRUBIN,TOTAL 0.2 mg/dL (0.2-1.3); BLOOD UREA NITROGEN 16 mg/dL (7-20); CARBON DIOXIDE 24 mmol/L (22-30); CHLORIDE 110 mmol/L (98-107); CREATINE KINASE 58 U/L (55-170); GLUCOSE 113 mg/dL (75-110); POTASSIUM 4.6 mmol/L (3.6-5.0); SODIUM 144.1 mmol/L (137-145); TOTAL PROTEIN 7.2 g/dL (6.3-8.2)
[2017-05-11] MEDS ORDERED: QUETIAPINE FUMARATE 25 MG TABLET PO ONE (06:07)
[2017-05-11] MEDS ORDERED: LORAZEPAM INJ 2 MG/1 ML VIAL IV ONE (06:11)
[2017-05-11 06:14] LABS: CREATINE KINASE MB 1.24 ng/mL (<4.55)
[2017-05-11] MEDS ORDERED: LORAZEPAM INJ 2 MG/1 ML VIAL ONE (06:14)
[2017-05-11 06:16] LABS: TROPONIN I < 0.012 ng/mL
[2017-05-11] MEDS ORDERED: DIPHENHYDRAMINE HCL 50 MG/ML VIAL IM ONE (06:18)
[2017-05-11] MEDS ORDERED: DIPHENHYDRAMINE HCL 50 MG/ML VIAL ONE (06:20)
--- NOTE | 2017-05-11 06:33 | RADIOLOGY REPORT (SQ) ---
EXAM DESCRIPTION: CHEST SINGLE VIEW COMPLETED DATE/TIME: 05/11/2017 5:40 am REASON FOR STUDY: Chest pain COMPARISON: Chest x-ray 04/10/2017, 03/20/2016. CT chest/abdomen/pelvis 03/20/2016. EXAM PARAMETERS: NUMBER OF VIEWS: One view. TECHNIQUE: Single frontal radiographic view of the chest acquired. RADIATION DOSE: NA LIMITATIONS: The patient is rotated. FINDINGS: LUNGS AND PLEURA: Ground-glass opacity noted at the right lung base. No sizable pleural e ffusion or pneumothorax. MEDIASTINUM AND HILAR STRUCTURES: No masses. Contour normal. HEART AND VASCULAR STRUCTURES: The heart is upper normal limit in size. No overt vascular congestion . BONES: No acute findings. HARDWARE: None in the chest. OTHER: Redemonstration of multiple round metallic densities within the soft tissues of the chest and left arm. IMPRESSION: Ground-glass opacity at the right lung base, may represent atelectasis or pneumonia. TECHNICAL DOCUMENTATION: JOB ID: [id number] [employer]- All Rights Reserved
[2017-05-11 06:37] VITALS: BP 169/115
--- NOTE | 2017-05-11 07:59 | EKG REPORT ---
SEVERITY:- ABNORMAL ECG - ATRIAL FIBRILLATION, V-RATE 65-94 LOW VOLTAGE IN FRONTAL LEADS LEFT VENTRICULAR HYPERTROPHY : Confirmed by: Abdulkadir Augustin MD 11-May-2017 07:58:30
== END 2017-05-11 07:45 | disposition home or self-care (01) ==
LOC: ER 04:22
DX: R07.9 Chest pain, unspecified (principal); J18.1 Lobar pneumonia, unspecified organism; F03.90 Unspecified dementia, unspecified severity, without behavioral disturbance, psychotic disturbance, mood disturbance, and anxiety; I48.91 Unspecified atrial fibrillation; I25.10 Atherosclerotic heart disease of native coronary artery without angina pectoris; E78.00 Pure hypercholesterolemia, unspecified; I10 Essential (primary) hypertension; J44.9 Chronic obstructive pulmonary disease, unspecified; Z86.73 Personal history of transient ischemic attack (TIA), and cerebral infarction without residual deficits
CPT/HCPCS: 93005; 99285; 96372; 96374; 36415; 82553; 82550; 85025; 80053; 84484; 71045; 93010; J1200; J2060

== ENCOUNTER 2017-09-17 00:09 | Inpatient (IN) | payer MEDICARE, BC, MEDICAID ==
[2017-09-17] MEDS ORDERED: PIPERACILLIN/TAZOBACTAM 3.375 GM VIAL IV ONE (00:17)
[2017-09-17] MEDS ORDERED: RINGERS SOLUTION,LACTATED 2,000 ML IV ONE (00:17)
[2017-09-17] MEDS ORDERED: ACETAMINOPHEN 325 MG SUPP.RECT PR ONE (00:17)
[2017-09-17] MEDS ORDERED: LEVETIRACETAM 1000 MG/NACL-ISO 1,000 MG/100 ML RTUPB IV ONE (00:18)
--- NOTE | 2017-09-17 00:24 | ER Document Report ---
ED General - General Stated Complaint: POSSIBLE SEIZURE Time Seen by Provider: 09/17/17 00:16 Cannot obtain history due to: Dementia, Unstable vital signs Notes: Patient is a 76-year-old male who presents from a nursing facility with concerns of status epilepticus and possible aspiration pneumonia. The patient was noted by staff at the facility to have been having a seizure for at least 30 minutes. EMS was contacted, transported the patient to the hospital after turning the seizure with IV midazolam. The patient was noted to be febrile, tachypneic and in respiratory distress. He has a history of similar presentations in the past. No additional history can be obtained as the patient is nonverbal at baseline and there is no family available. TRAVEL OUTSIDE OF THE [place] IN LAST 30 DAYS: No - Related Data Allergies/Adverse Reactions: No Known Allergies Allergy (Verified 01/18/15 05:15) Past Medical History - General Information source: Emergency Med Personnel, [facility] Records Cannot obtain history due to: Unstable vital signs - Social History Smoking Status: Unknown if Ever Smoked Lives with: Retirement Family History: Reviewed & Not Pertinent - Past Medical History Cardiac Medical History: Reports: Hx Atrial Fibrillation, Hx Coronary Artery Disease, Hx Hypercholesterolemia, Hx Hypertension Pulmonary Medical History: Reports: Hx COPD Neurological Medical History: Reports: Hx Cerebrovascular Accident, Hx Seizures Renal/ Medical History: Denies: Hx Peritoneal Dialysis Psychiatric Medical History: Reports: Hx Dementia, Hx Depression Past Surgical History: Reports: Hx Abdominal Surgery, Hx Herniorrhaphy - Immunizations Hx Diphtheria, Pertussis, Tetanus Vaccination: Yes Review of Systems - Review of Systems -: Yes ROS unobtainable due to patient's medical condition Physical Exam - Vital signs Interpretation: Tachycardic, Hypoxic, Tachypneic, Febrile Notes: PHYSICAL EXAMINATION: GENERAL: Frail, emaciated, cachectic. Appears critically ill and to be actively dying. HEAD: Atraumatic, normocephalic. EYES: Corneas are clouded bilaterally. Sclera anicteric, conjunctiva are normal. ENT: nares patent, oropharynx clear without exudates. Dry mucous membranes. NECK: supple without lymphadenopathy LUNGS: Moderate respiratory distress, tachypneic, intercostal retractions, scattered rales in all lung christie. HEART: Irregularly irregular tachycardia without murmurs ABDOMEN: Soft, nontender, No guarding, no rebound. No masses appreciated. EXTREMITIES: Contracted left upper and lower extremity. Muscle wasting throughout. NEUROLOGICAL: GCS 3. PSYCH: Does not speak, unresponsive SKIN: Warm, poor skin turgor, Course - Re-evaluation Re-evalutation: 09/17/17 00:22 Patient presents in severe sepsis, altered, tachypneic, hypoxic, tachycardic, and appears to be frail, emaciated and have no quality of life at baseline. The patient was apparently in status epilepticus prior to arrival. This was terminated with 2 mg of midazolam prior to arrival by EMS. The patient is no longer seizing at time of arrival but is obtunded, current GCS is 3. The patient is a DNR and DNI. I do not believe that intubation is appropriate in this terminally ill patient should likely be comfort measures. I immediately contacted the and expressed that I did not feel pursuing aggressive treatment for this patient would be appropriate and that we should consider proceeding with comfort measures. is heading to the hospital and would like to discuss further once she gets here. In the meantime I will continue to pursue aggressive treatment at this time point including IV fluids, 2 L of lactated Ringer's opened wide, begin IV Zosyn, continue on supplement oxygenation, loaded with 1 g of Keppra, obtain x-rays, blood cultures, urine cultures, standard laboratories and reassess the patient at regular intervals. 09/17/17 00:56 Patient continues to be tachycardic, lethargic, critically ill in appearance. Awaiting family members to arrive. 09/17/17 01:12 I had an extensive conversation with the Moni. I have reviewed that the patient appears to be very chronically ill at baseline. She does confirm to me that her would never have wanted to be like this in the very first place. He does not ambulate, urinates and defecates on himself, has not verbalized any meaningful communication in quite some time. 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 We have reviewed the option of pursuing ongoing treatment with IV fluids, anti-epileptics, as well as antibiotics. We have also reviewed that we would place a catheter to monitor urine output and check a urine study. I have also discussed the option of not pursuing any of these measures and instead pursuing comfort measures specifically targeted towards reducing his respiratory distress and providing analgesic control. The at this point agrees to pursuing comfort care and understands that this will hasten the patient's . I have ordered monitors to be discontinued, have discontinued IV antibiotics, and have ordered a 200 mcg fentanyl bolus as well as as needed fentanyl. Will monitor the patient down in the emergency department to see if he clinically deteriorates or if he will require hospitalization for end-of- life care. 09/17/17 01:41 Patient is breathing much more comfortably now after receiving 200 mg of fentanyl. He is on nasal cannula. Monitor is been discontinued in all therapeutic measures have likewise been discontinued. I discussed this case with Dr. Bhardwaj who has accepted the patient for comfort measures to the medical floor. - Laboratory Result Diagrams: 09/17/17 00:38 09/17/17 00:38 Laboratory results interpreted by me: 09/17/17 09/17/17 09/17/17 00:38 00:38 00:38 WBC 11.0 H MCH 25.9 L RDW 14.7 H Seg Neutrophils % 89.3 H Lymphocytes % 6.9 L Monocytes % 2.8 L Absolute Neutrophils 9.8 H VBG pH 7.27 L Chloride 109 H BUN 21 H Glucose 167 H Albumin 3.2 L - Diagnostic Test Radiology reviewed: Image reviewed, Reports reviewed Radiology results interpreted by me: 09/17/17 01:41 Chest x-ray: No acute infiltrate or pneumothorax - EKG Interpretation by Me Additional EKG results interpreted by me: 09/17/17 02:42 Atrial fibrillation. Rapid ventricular response. Rate 131. Low voltage throughout. Mild ST depressions in V5 and V6. Critical Care Note - Critical Care Note Total time excluding time spent on procedures (mins): 37 Comments: Critical care time spent obtaining history from patient or surrogate, discussions with consultants, development of treatment plan with patient or surrogate, evaluation of patient's response to treatment, examination of patient , ordering and performing treatments and interventions, ordering and review of laboratory studies, re-evaluation of patient's condition, ordering and review of radiographic studies and review of old charts Discharge - Discharge Clinical Impression: Comfort measures only status, Do not resuscitate, Status epilepticus Dementia Qualifiers: Dementia type: unspecified type Dementia behavioral disturbance: without behavioral disturbance Qualified Code(s): F03.90 - Unspecified dementia without behavioral disturbance Aspiration pneumonia Qualifiers: Aspiration pneumonia type: unspecified Laterality: unspecified laterality Lung location: unspecified part of lung Qualified Code(s): J69.0 - Pneumonitis due to inhalation of food and vomit Sepsis Qualifiers: Sepsis type: sepsis due to unspecified organism Qualified Code(s): A41.9 - Sepsis, unspecified organism Condition: Critical Disposition: ADMITTED INPATIENT Admitting Provider: Hospitalist Unit Admitted: Medical Floor
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
[2017-09-17 00:51] LABS: ABSOLUTE BASOPHILS # (AUTO) 0.1 10^3/uL (0.0-0.2); ABSOLUTE LYMPHOCYTES (AUTO) 0.8 10^3/uL (0.5-4.7); ABSOLUTE MONOCYTES (AUTO) 0.3 10^3/uL (0.1-1.4); ABSOLUTE NEUT (AUTO) 9.8 10^3/uL (1.7-8.2); BASOPHILS % (AUTO) 0.8 % (0-2); EOSINOPHILS % (AUTO) 0.2 % (0-6); HEMATOCRIT 42.1 % (37.9-51.0); HEMOGLOBIN 13.5 g/dL (13.5-17.0); LYMPHOCYTES % (AUTO) 6.9 % (13-45); MEAN CORPUSCULAR HEMOGLOBIN 25.9 pg (27.0-33.4); MEAN CORPUSCULAR HGB CONC 32.1 g/dL (32.0-36.0); MEAN CORPUSCULAR VOLUME 81 fl (80-97); MONOCYTES % (AUTO) 2.8 % (3-13); PLATELET COUNT 211 10^3/uL (150-450); RED BLOOD COUNT 5.22 10^6/uL (4.35-5.55); RED CELL DISTRIBUTION WIDTH 14.7 % (11.5-14.0); SEGMENTED NEUTROPHILS % (AUTO) 89.3 % (42-78); TOTAL CELLS COUNTED % (AUTO) 100 %
[2017-09-17 01:01] LABS: VENOUS BLOOD HCO3 22.1 mmol/L (20-32); VENOUS BLOOD PCO2 49.2 mmHg (35-63); VENOUS BLOOD PH 7.27 (7.30-7.42)
[2017-09-17] MEDS ORDERED: FENTANYL CITRATE INJ/PF 100 MCG/2 ML AMPUL IV PRN (01:10)
[2017-09-17] MEDS ORDERED: FENTANYL CITRATE INJ/PF 100 MCG/2 ML AMPUL IV ONE ×2 (01:11→03:12)
[2017-09-17 01:20] LABS: ALANINE AMINOTRANSFERASE 32 U/L (21-72); ALBUMIN 3.2 g/dL (3.5-5.0); ALKALINE PHOSPHATASE 125 U/L (38-126); ANION GAP 12 (5-19); ASPARTATE AMINO TRANSFERASE 28 U/L (17-59); BILIRUBIN,DIRECT 0.2 mg/dL (0.0-0.4); BILIRUBIN,TOTAL 0.2 mg/dL (0.2-1.3); BLOOD UREA NITROGEN 21 mg/dL (7-20); CALCIUM 8.6 mg/dL (8.4-10.2); CARBON DIOXIDE 22 mmol/L (22-30); CHLORIDE 109 mmol/L (98-107); GLUCOSE 167 mg/dL (75-110); SODIUM 143.2 mmol/L (137-145); TOTAL PROTEIN 6.9 g/dL (6.3-8.2)
[2017-09-17] MEDS: FENTANYL CITRATE INJ/PF 100 MCG/2 ML AMPUL IV PRN ×6 (02:33→17:44)
[2017-09-17 02:55] VITALS: BP 116/97
[2017-09-17] MEDS ORDERED: LORAZEPAM INJ 2 MG/1 ML VIAL ONE (04:29)
[2017-09-17] MEDS ORDERED: LORAZEPAM INJ 2 MG/1 ML VIAL IV ONE (04:30)
[2017-09-17] MEDS: LORAZEPAM INJ 2 MG/1 ML VIAL IV PRN ×4 (06:37→17:44)
--- NOTE | 2017-09-17 06:52 | PDOC H&P ---
History of Present Illness Admission Date/PCP: 09/17/17 01:51 THEA REYES Patient complains of: Seizure History of Present Illness: CHARISSE HUDSON SR is a 76 [facility] with history of seizure disorder, dementia, nonverbal state and contractures. He presents after prolonged seizure and vomiting concerning for aspiration. In the emergency room he was found with recurrent seizures febrile tachypneic and respiratory distress. Given his advanced comorbidity patient's and power of employment attorney was consulted to consider comfort measures only to which she readily agrees. Patient is started on fentanyl, Ativan and referred to the hospitalist for admission. Patient is unable to provide history and appears comfortable following sedation. Past Medical History Cardiac Medical History: Reports: Atrial Fibrillation, Coronary Artery Disease, Hyperlipidema, Hypertension Pulmonary Medical History: Reports: Chronic Obstructive Pulmonary Disease (COPD) Neurological Medical History: Reports: Seizures Psychiatric Medical History: Reports: Dementia, Depression Past Surgical History Past Surgical History: Reports: Herniorrhaphy Social History Information Source: Emergency Med Personnel, [facility] OF [facility] Records Lives with: Assisted Smoking Status: Unknown if Ever Smoked Frequency of Alcohol Use: None Hx Recreational Drug Use: No Drugs: None Hx Prescription Drug Abuse: No - Advance Directive Resuscitation Status: Do Not Resuscitate Family History Family History: Other - Unobtainable Parental Family History Reviewed: No - Unobtainable Children Family History Reviewed: No Sibling(s) Family History Reviewed.: No Medication/Allergy Home Medications: Budesonide/Formoterol Fumarate [Symbicort HFA 160-4.5 mcg Inhaler 6 gm] 1 puff IH Q12 04/10/17 Bupropion HCl [Wellbutrin 75 mg Tablet] 75 mg PO Q12 04/10/17 Divalproex Sodium [Depakote Sprinkle 125 mg Capsule] 125 mg PO Q12 04/10/17 Docusate Sodium [Colace 100 mg Capsule] 100 mg PO BID 04/10/17 Finasteride [Proscar 5 mg Tablet] 5 mg PO DAILY 04/10/17 Latanoprost [Xalatan 0.005% Oph Soln 2.5 ml] 1 drop OU QHS 04/10/17 Lisinopril [Prinivil 10 mg Tablet] 10 mg PO DAILY 04/10/17 Loratadine [Claritin 10 mg Tablet] 10 mg PO DAILY 04/10/17 Metoprolol Tartrate [Lopressor 50 mg Tablet] 50 mg PO DAILY 04/10/17 Quetiapine Fumarate [Seroquel] 50 mg PO DAILY 04/10/17 Quetiapine Fumarate [Seroquel] 75 mg PO QHS 04/10/17 Tamsulosin HCl [Flomax 0.4 mg Cap.sr] 0.4 mg PO DAILY 04/10/17 Clonidine [Catapres-Tts 2 (0.2 mg/24 Hr) Transderm Ptch] 1 each TD Tu@2200 patch.tdwk 04/19/17 Diltiazem HCl [Cardizem 30 mg Tablet] 30 mg PO Q6 30 Days #120 tablet 04/19/17 Levetiracetam [Keppra 500 mg Tablet] 500 mg PO Q12 tablet 04/19/17 Azithromycin [Zithromax 250 mg Tablet] 250 mg PO ASDIR PRN #6 tablet 05/11/17 Allergies/Adverse Reactions: No Known Allergies Allergy (Verified 01/18/15 05:15) Review of Systems ROS unobtainable: Due to mental status - Unobtainable Physical Exam Vital Signs: Temp Pulse Resp BP Pulse Ox 102 F H 27 H 116/97 H 96 09/17/17 00:12 09/17/17 01:01 09/17/17 01:01 09/17/17 01:01 Intake & Output 09/15/17 09/16/17 09/17/17 11:59 11:59 11:59 Intake Total 0 Output Total 0 Balance 0 Weight 59.9 kg General appearance: PRESENT: no acute distress, other - Contracted, temporal wasting, cachexia. Head exam: PRESENT: atraumatic, normocephalic Eye exam: ABSENT: EOMI, PERRLA Ear exam: PRESENT: normal external ear exam Mouth exam: PRESENT: dry mucosa. ABSENT: moist, tongue midline Neck exam: ABSENT: carotid bruit, JVD, lymphadenopathy, thyromegaly Respiratory exam: PRESENT: accessory muscle use, crackles, rales, rhonchi Cardiovascular exam: PRESENT: RRR. ABSENT: diastolic murmur, rubs, systolic murmur Pulses: PRESENT: normal dorsalis pedis pul Vascular exam: PRESENT: normal capillary refill GI/Abdominal exam: PRESENT: normal bowel sounds, soft. ABSENT: distended, guarding, mass, organolmegaly, rebound, tenderness Rectal exam: PRESENT: deferred Extremities exam: PRESENT: full ROM, other - Flexion contracture. ABSENT: calf tenderness, clubbing, pedal edema Neurological exam: PRESENT: altered Skin exam: PRESENT: dry, intact, warm. ABSENT: cyanosis, rash Results Impressions: Chest X-Ray 09/17/17 00:16 IMPRESSION: No acute cardiopulmonary findings. Assessment & Plan - Diagnosis (1) Comfort measures only status Is this a current diagnosis for this admission?: Yes Plan: Advanced comorbidity of dementia, seizure disorder, recurrent aspiration. Patient's power of employment attorney readily agrees to comfort measures only. (2) Aspiration pneumonia Qualifiers: Aspiration pneumonia type: unspecified Laterality: unspecified laterality Lung location: unspecified part of lung Qualified Code(s): J69.0 - Pneumonitis due to inhalation of food and vomit Is this a current diagnosis for this admission?: Yes Plan: Supportive care only (3) Dementia Qualifiers: Dementia type: unspecified type Dementia behavioral disturbance: without behavioral disturbance Qualified Code(s): F03.90 - Unspecified dementia without behavioral disturbance Is this a current diagnosis for this admission?: Yes Plan: Supportive care (4) Do not resuscitate Is this a current diagnosis for this admission?: Yes Plan: Documented and ordered - Time Time Spent: 30 to 50 Minutes - Inpatient Certification Medical Necessity: Need Close Monitoring Due to Risk of Patient Decompensation
--- NOTE | 2017-09-17 07:27 | EKG REPORT ---
SEVERITY:- ABNORMAL ECG - ATRIAL FIBRILLATION, V-RATE 98-158 LOW VOLTAGE IN FRONTAL LEADS LVH WITH SECONDARY REPOLARIZATION ABNORMALITY ST DEPRESSION, CONSIDER ISCHEMIA, ANT-LAT LDS : Confirmed by: Abdulkadir Augustin MD 17-Sep-2017 07:27:07
[2017-09-17] MEDS ORDERED: ATROPINE SULFATE 1% OPH SOLN 5 ML BOTTLE SL PRN (09:34)
[2017-09-17] MEDS ORDERED: ACETAMINOPHEN 650 MG SUPP.RECT PR PRN (09:34)
--- NOTE | 2017-09-17 09:42 | Progress Note ---
Provider Note Provider Note: The patient was admitted overnight by Dr. Bhardwaj for seizure, aspiration pneumonia and advanced dementia. He was subsequently placed on comfort measures only. Records were reviewed and the patient was briefly seen; agree with comfort care measures and ordered care set. The patient was seen on morning rounds with his at bedside. He is found to be obtunded, tachypneic with wet oral respiratory sounds, and with good capillary refill. The patient's reported that he had an additional seizure shortly upon arriving to his room. This was treated with IV Ativan per nursing staff. She reports that since that time, he has been resting comfortably. She expresses appreciation for the care has received and has no other questions or concerns at this time. 1) comfort measures only: The patient's has requested comfort measures only for advanced dementia, seizure disorder, and recurrent episodes of aspiratin pneumonia. Patient's orders include IV fentanyl hourly as needed for pain or tachypnea, IV Ativan every 30 min, for anxiety or seizure activity, Tylenol as needed fever, and atropine sublingual drops as needed for copious oral secretions. 2) aspiration pneumonia: Supportive care only 3) dementia: Supportive care only 4) seizure disorder: IV Ativan as needed 5) DNR: DNR documented and ordered; patient is on comfort care measures as outlined above.
[2017-09-18] MEDS: LORAZEPAM INJ 2 MG/1 ML VIAL IV PRN ×4 (01:38→18:25)
[2017-09-18] MEDS: FENTANYL CITRATE INJ/PF 100 MCG/2 ML AMPUL IV PRN ×4 (01:38→18:25)
--- NOTE | 2017-09-18 18:29 | PDOC PROGRESS REPORT ---
Subjective Progress Note for:: 09/18/17 Subjective:: The patient was admitted overnight by Dr. Bhardwaj for seizure, aspiration pneumonia and advanced dementia. He was subsequently placed on comfort measures only. Reason For Visit: TWISTHAND Physical Exam Vital Signs: Temp Pulse Resp BP Pulse Ox 102 F H 27 H 116/97 H 96 09/17/17 00:12 09/17/17 01:01 09/17/17 01:01 09/17/17 01:01 Intake & Output 09/17/17 09/18/17 09/19/17 06:59 06:59 06:59 Intake Total 0 4 Output Total 0 Balance 0 4 Weight 59.9 kg 57.2 kg General appearance: PRESENT: no acute distress, other - obtunded Results Impressions: Chest X-Ray 09/17/17 00:16 IMPRESSION: No acute cardiopulmonary findings. Assessment & Plan - Time Time Spent with patient: Less than 15 minutes Medications reviewed and adjusted accordingly: Yes Anticipated discharge: Hospice Within: within 48 hours - Inpatient Certification Based on my medical assessment, after consideration of the patient's comorbidities, presenting symptoms, or acuity I expect that the services needed warrant INPATIENT care.: Yes Medical Necessity: Other - hospice care - Plan Summary Plan Summary: Continue comfort measures as per family request. Patient is currently comfortable. 2. Aspiration pneumonia 3. Advanced dementia 4. History of seizure disorder 5. Patient is DNR and hospice care
[2017-09-19] MEDS: FENTANYL CITRATE INJ/PF 100 MCG/2 ML AMPUL IV PRN (05:56)
[2017-09-19] MEDS: LORAZEPAM INJ 2 MG/1 ML VIAL IV PRN (05:56)
--- NOTE | 2017-09-19 16:19 | Death Summary ---
Summary Date : 09/19/17 Time of :: 14:55 Autopsy: No Resuscitation Status: Comfort Measures Only Primary Care Provider: Dr. 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 He was thought to have aspiration pneumonia acutely. Due to patient's long-standing chronic illnesses underlying his acute illness he was made hospice care and patient was monitored and treated in the hospital for comfort care. Patient at 1455 on September 19, 2017
== END 2017-09-19 15:55 | DRG 177 ==
LOC: ER 00:09 → EH 01:51 → 4S 04:11
PROVIDERS: ADMIT Internal Medicine; ATTEND Internal Medicine
DX: J69.0 Pneumonitis due to inhalation of food and vomit (principal); J96.00 Acute respiratory failure, unspecified whether with hypoxia or hypercapnia; Z51.5 Encounter for palliative care; F03.90 Unspecified dementia, unspecified severity, without behavioral disturbance, psychotic disturbance, mood disturbance, and anxiety; Z66 Do not resuscitate; G40.901 Epilepsy, unspecified, not intractable, with status epilepticus; J44.9 Chronic obstructive pulmonary disease, unspecified; F32.9 Major depressive disorder, single episode, unspecified; I48.91 Unspecified atrial fibrillation; E78.5 Hyperlipidemia, unspecified; I25.10 Atherosclerotic heart disease of native coronary artery without angina pectoris; Z79.899 Other long term (current) drug therapy; Z86.73 Personal history of transient ischemic attack (TIA), and cerebral infarction without residual deficits
CPT/HCPCS: 36415; 71045; 80053; 82803; 83605; 85025; 87040; 93005; 93010; 96361; 96365; 96375; 99291; J1953; J2060; J3010; J7120